=== PATIENT | male | born 1935 | race Caucasian/White ===

== ENCOUNTER 2021-10-12 10:52 | Inpatient (IN) | payer MEDICARE, SELFPAY ==
--- NOTE | ~2021-10-12 | XR_ITS ---
EXAMINATION: XR CHEST CLINICAL INFORMATION: Weakness. COMPARISON: None TECHNIQUE: Frontal view of the chest was obtained. FINDINGS: Prominent bowel loops are identified along the subdiaphragmatic region bilaterally with nonspecific bibasilar airspace disease. Curvilinear radiolucency seen at the right subdiaphragmatic region likely represent bowel loop however, possibility of free air is not excluded. There are no prior studies available for comparison. The cardiac mediastinal silhouette is within normal limit. XR/XR chest 1V IMPRESSION: Prominent bowel loops seen at subdiaphragmatic region of both upper abdomen. Curvilinear radiolucency the right subdiaphragmatic region likely represent lung parenchyma and less likely to be free air. Follow-up radiographs of the abdomen may be considered for further clarification, if clinically appropriate. Evaluation is technically limited. Bibasilar airspace disease.
--- NOTE | ~2021-10-12 | XR_ITS ---
EXAMINATION: XR CHEST CLINICAL INFORMATION: Left lower lobe atelectasis. COMPARISON: 10/20/2021 at 6:29 AM chest radiograph, chest CT dated 10/19/2021. TECHNIQUE: Single portable AP view of the chest. FINDINGS: Support devices: Endotracheal tube positioned approximately 6 cm proximal to leatha. Enteric tube with tip overlying the left upper quadrant and gastric fundus. Right internal jugular catheter with tip terminating in the distal superior vena cava. Persistent mild opacification at the left lung base with blunting of the left costophrenic angle. The right lung is clear. The heart and mediastinal structures are unremarkable. XR/XR chest 1V IMPRESSION: 1. Persistent small left pleural effusion and superjacent atelectasis correlating with previous CT findings and demonstrating no significant radiographic change.
--- NOTE | ~2021-10-12 | CT_ITS ---
EXAMINATION: CT CHEST WITHOUT CONTRAST CLINICAL INFORMATION: Question worsening infiltrates COMPARISON: Chest x-ray 10/18/2021. Chest CT 10/15/2021 TECHNIQUE: Multidetector volumetric CT imaging of the chest was done. Axial MIP volume rendering provided. Sagittal and coronal reformatted images were obtained. This CT examination was performed using dose optimization techniques as appropriate, variously including the following: *Automated exposure control *Adjustment of mA and/or kV according to patient size (this includes techniques or standardized protocols for targeted exams where dose is matched to indication/reason for exam; i.e. 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 The tip of the endotracheal tube is 3 cm above the leatha. An enteric tube descends the esophagus with tip in the proximal stomach. 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 LUNGS: There is consolidation of the posterior aspect of the right lower lobe with air bronchograms which is slightly worsened compared to the CT 10/15/2021. There is near complete atelectasis/collapse of the left lower lobe with consolidation; a few air bronchograms are seen anteriorly. There is prompt cutoff of the left lower lobe airway before the major segmental branches. MEDIASTINUM: No hilar or mediastinal lymphadenopathy. Mild cardiomegaly. Coronary artery calcifications. Aortic arch calcifications. No pericardial effusion. PLEURA: Small bilateral pleural effusions are present new/increased from the prior CT. AXILLA: No axillary or internal mammary lymphadenopathy. UPPER ABDOMEN: No adrenal mass. Partially imaged left upper pole renal cysts incompletely evaluated. OSSEOUS STRUCTURES: Multilevel degenerative changes of the thoracolumbar spine. No acute or suspicious osseous abnormality. CT/CT chest wo con IMPRESSION: Worsened bilateral lower lobe consolidation. There is near complete atelectasis/collapse of the left lower lobe with abrupt cut off of the left lower lobe bronchus. A component of mucous plugging or aspiration may be present. Concomitant pneumonia cannot be excluded. New small bilateral pleural effusions are present. Fleischner guidelines were followed.
--- NOTE | ~2021-10-12 | CT_ITS ---
EXAMINATION: CT CHEST WITHOUT CONTRAST CLINICAL INFORMATION: Respiratory failure. COMPARISON: Most recent chest radiograph done earlier the same day. TECHNIQUE: Multidetector volumetric CT imaging of the chest was done. Axial MIP volume rendering provided. Sagittal and coronal reformatted images were obtained. This CT examination was performed using dose optimization techniques as appropriate, variously including the following: *Automated exposure control *Adjustment of mA and/or kV according to patient size (this includes techniques or standardized protocols for targeted exams where dose is matched to indication/reason for exam; i.e. extremities or head) *Use of iterative reconstruction technique DLP: 257 mGy-cm FINDINGS: VACUUM SYSTEM TESTER: Grossly unremarkable. LUNGS: Posterior bibasilar airspace opacities with air bronchograms, left greater than right, consistent with multifocal pneumonia. There are small patchy areas of airspace opacities extending more superiorly within the right lower lobe. 0.4 cm subpleural nodule along the left major fissure (axial image 160/691). There are a few scattered additional 0.2 cm pulmonary nodules. No large pulmonary mass. The central airways are patent. Endotracheal tube with its tip approximately 3.3 cm proximal to the leatha. MEDIASTINUM: Borderline cardiomegaly. Coronary artery atherosclerotic calcifications. No thoracic aortic dilatation. Prominent atherosclerotic calcifications. Partially visualized enterogastric tube extending into the gastric lumen. No significant superior mediastinal or hilar lymphadenopathy. Unremarkable thyroid. PLEURA: There is no pleural effusion. No pleural mass or thickening. AXILLA: No lymphadenopathy. UPPER ABDOMEN: Mild bilateral perinephric stranding which is nonspecific. OSSEOUS STRUCTURES: Unremarkable. CT/CT chest wo con IMPRESSION: 1. Bilateral lower lobe consolidations with air bronchograms, consistent with multifocal pneumonia. Findings can be seen in the setting of aspiration. 2. Small pulmonary nodules measuring up to 0.4 cm. According to the UPDATED 2017 Fleischner Society recommendations, the advised follow up imaging for solid nodules < 6 mm is: LOW RISK PATIENT: No routine follow up. HIGH RISK PATIENT: Optional CT at 12 months. 3. Borderline cardiomegaly. Fleischner guidelines were followed.
--- NOTE | ~2021-10-12 | CT_ITS ---
EXAMINATION: CT HEAD WITHOUT CONTRAST CLINICAL INFORMATION: Altered mental status. Recent fall. COMPARISON: None TECHNIQUE: Contiguous axial imaging was performed from the skull base to vertex without intravenous administration of contrast. This CT examination was performed using dose optimization techniques as appropriate, variously including the following: *Automated exposure control *Adjustment of mA and/or kV according to patient size (this includes techniques or standardized protocols for targeted exams where dose is matched to indication/reason for exam; i.e. extremities or head) *Use of iterative reconstruction technique DLP: 796.7 mGy-cm FINDINGS: There is no evidence of acute intracranial hemorrhage or territorial infarction. No abnormal mass effect or midline shift is seen. Sanders to white matter differentiation is well preserved. No extra-axial fluid collections are identified. The ventricles are normal in size. There is no abnormal attenuation within the brain parenchyma. The osseous structures and soft tissues are normal. The mastoid air cells and visualized portions of the paranasal sinuses are well aerated. CT/CT head/brain wo con IMPRESSION: No acute intracranial pathology.
--- NOTE | ~2021-10-12 | XR_ITS ---
EXAMINATION: XR CHEST CLINICAL INFORMATION: Check endotracheal tube. Hypoxia. COMPARISON: Previous chest x-ray and chest CT from yesterday TECHNIQUE: Frontal view of the chest was obtained. FINDINGS: The cardiac and mediastinal contours are stable. There is an endotracheal tube with tip 5.5 cm above the leatha. There is a nasogastric tube with tip projecting over the stomach. There is a right jugular line tip projecting over the SVC. There is airspace disease seen at both lung bases similar to yesterday's exam. There is no pleural effusion or pneumothorax. No acute bone abnormality. XR/XR chest 1V IMPRESSION: Satisfactory position of support line and tubes. No change in bibasilar pneumonia.
--- NOTE | ~2021-10-12 | XR_ITS ---
EXAMINATION: XR CHEST CLINICAL INFORMATION: Aspiration pneumonia. Intubated. COMPARISON: 10/16/2021 TECHNIQUE: Frontal view of the chest was obtained. FINDINGS: The endotracheal tube terminates at the level of the clavicles, approximately 7 cm above the leatha. Enteric tube extends into the stomach. Right internal jugular central venous catheter remains in place. Cardiac leads overlie the chest. The lungs are well expanded. Patchy bibasilar opacities are increased from prior. No significant pleural effusion. No pneumothorax. The cardiomediastinal silhouette is normal in size with a calcified aorta. XR/XR chest 1V IMPRESSION: Endotracheal tube terminating 7 cm above the leatha, at the level of the clavicles. Consider advancement. Increased patchy bibasilar opacities. This could be aspiration/pneumonia.
--- NOTE | ~2021-10-12 | XR_ITS ---
EXAMINATION: XR CHEST CLINICAL INFORMATION: Endotracheal tube/OG tube placement COMPARISON: 10/12/2021 TECHNIQUE: Frontal view of the chest was obtained. FINDINGS: Endotracheal tube terminates at the level of the clavicles. This is approximately 8.5 cm above the leatha. There is no enteric tube visualized. Cardiac leads overlie the chest. The lungs are well expanded. No consolidation, edema, or effusion. No pneumothorax. The cardiomediastinal silhouette is normal in size, with a calcified aorta. XR/XR chest 1V IMPRESSION: Endotracheal tube terminates 8.5 cm above the leatha. Recommend advancement. There is no enteric tube visualized. This critical result was discussed with Lurdes Rogers PA-C, by telephone at 10/15/2021 5:14 AM and it was ascertained that the content and urgency of the report was understood at the time of direct communication.
--- NOTE | ~2021-10-12 | XR_ITS ---
XR/XR chest 1V IMPRESSION: Endotracheal tube 4 cm above the leatha. Enteric tube terminates in the stomach. Right internal jugular central venous catheter terminates near the cavoatrial junction. No pneumothorax. Likely tiny pleural effusions with bibasilar atelectasis. EXAMINATION: XR CHEST CLINICAL INFORMATION: Triple-lumen catheter and OG tube placement COMPARISON: 10/15/2021 TECHNIQUE: Frontal view of the chest was obtained. FINDINGS: Endotracheal tube terminates 4 cm above the leatha. Enteric tube extends into the stomach. Right internal jugular central venous catheter terminates near the cavoatrial junction. Cardiac leads overlie the chest. The lungs are well expanded. Streaky bibasilar opacities favor atelectasis. Likely tiny pleural effusions bilaterally. No edema. No pneumothorax. The cardiomediastinal silhouette is unchanged, with a calcified aorta.
--- NOTE | ~2021-10-12 | CT_ITS ---
EXAMINATION: CT HEAD WITHOUT CONTRAST CLINICAL INFORMATION: Unresponsive COMPARISON: October 12, 2021 TECHNIQUE: Contiguous axial imaging was performed from the skull base to vertex without intravenous administration of contrast. This CT examination was performed using dose optimization techniques as appropriate, variously including the following: *Automated exposure control *Adjustment of mA and/or kV according to patient size (this includes techniques or standardized protocols for targeted exams where dose is matched to indication/reason for exam; i.e. extremities or head) *Use of iterative reconstruction technique DLP: 832 mGy-cm FINDINGS: There is no evidence of acute intracranial hemorrhage or territorial infarction. No abnormal mass effect or midline shift is seen. Sanders to white matter differentiation is well preserved. No extra-axial fluid collections are identified. There is some prominence of the ventricular system. There is mild periventricular white matter low density seen consistent with some degree of microangiopathy. The osseous structures and soft tissues are normal. There is opacification of a few right mastoid air cells as well as some mucosal thickening seen within the ethmoid and right maxillary sinus. CT/CT head/brain wo con IMPRESSION: No significant acute intracranial pathology.
--- NOTE | ~2021-10-12 | XR_ITS ---
EXAMINATION: XR CHEST CLINICAL INFORMATION: Left lower lobe atelectasis COMPARISON: 10/18/2021 TECHNIQUE: Frontal view of the chest was obtained. FINDINGS: Endotracheal tube terminates approximately 6.5 cm above the leatha. Enteric tube extends into the stomach. Right internal jugular central venous catheter terminates near the cavoatrial junction. Cardiac leads overlie the chest. The lungs are well expanded. Increased retrocardiac opacity. Similar right basilar opacity. No pneumothorax. The cardiomediastinal silhouette is unchanged, with a calcified aorta. XR/XR chest 1V IMPRESSION: Endotracheal tube terminating 6.5 cm above the leatha. Worsening left basilar opacity could be atelectasis or pneumonia. Similar right basilar opacity.
[2021-10-12 11:12] VITALS: BP 113/56; PULSE 70; RESP 14; TEMP 36.6; O2SAT 91
[2021-10-12 11:14] VITALS: BP 128/66; PULSE 72; O2SAT 98; BMI 21.5
--- NOTE | 2021-10-12 11:15 | ED_ITS ---
HPI - Altered Mental Status General Chief Complaint: Altered Mental Status Stated Complaint: Difficulty breathing Time Seen by Provider: 10/12/21 11:00 Source: patient and EMS Mode of arrival: EMS Limitations: no limitations History of Present Illness HPI narrative: 85-year-old male who was brought to emergency department by ambulance for evaluation of shortness of breath and altered mental status. According to the paramedics, they were called to [facility] for an unresponsive to patient who was short of breath. When they arrived, the patient was on 2 L of oxygen via nasal cannula. He was awake and alert and was answering questions. The paramedics to come off oxygen his O2 saturation dropped to 90% therefore he is placed back on 2 L of oxygen via nasal cannula. Patient was then transported without incident. Records from [facility] were obtained and reviewed. Patient was admitted from 10/09/2021 until 10/11/2021 for fall. Record states patient has been falling frequently approximately 6-7 times over the past year. The patient was found to be orthostatic and was treated with normal saline with improvement. CT scan of head and neck were negative at that time. Initially his blood pressure was 77/51 improved with IV fluids. Patient's blood pressure medications were decreased. The patient was discharged to [facility] for rehab secondary to his weakness. In reviewing the records from [facility], the patient is not currently taking antibiotics. Related Data Home Medications Medication Instructions Recorded Confirmed acetaminophen 325 mg tablet 650 mg PO Q6H PRN Pain 10/12/21 10/12/21 amiodarone 100 mg tablet 100 mg PO DAILY 10/12/21 10/12/21 bisacodyl 10 mg rectal suppository 10 mg AR DAILY PRN Constipation 10/12/21 10/12/21 fluticasone propionate 50 1 spray intranasal DAILY PRN 10/12/21 10/12/21 mcg/actuation nasal Allergic Symptoms spray,suspension furosemide 20 mg tablet 60 mg PO DAILY 10/12/21 10/12/21 latanoprost 0.005 % eye drops 1 drp ophthalmic-Left 10/12/21 10/12/21 TID@0800,1400,2000 magnesium hydroxide 400 mg/5 mL 30 ml PO DAILY PRN Constipation 10/12/21 10/12/21 oral suspension (Milk of Magnesia) sacubitril 24 mg-valsartan 26 mg 1 tab PO DAILY 10/12/21 10/12/21 tablet (Entresto) sodium phosphates 19 gram-7 118 ml AR DAILY PRN Constipation 10/12/21 10/12/21 gram/118 mL enema (Fleet Enema) Allergies Allergy/AdvReac Type Severity Reaction Status Date / Time No Known Allergies Allergy Verified 10/12/21 11:14 Review of Systems Review of Systems: Yes all other systems are reviewed and are negative REPLACED BY [facility] Past Medical History REPLACED BY [facility] Narrative: Past medical history: Dilated cardiomyopathy, systolic congestive heart fa ilure, TIA secondary to carotid stenosis status post carotid endarterectomy, recurrent UTIs, hypertension, frequent falls left arm weakness with 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 Social history: States he lives in [facility] with his . He denies tobacco alcohol and drug use. Medical History (Updated 10/12/21 @ 17:37 by Pablo Velez MD) Dilated cardiomyopathy History of TIA (transient ischemic attack) HTN (hypertension) Orthostatic hypotension Systolic CHF Family History Family History (Updated 10/12/21 @ 17:37 by Pablo Velez MD) Other Guillain Rainey? syndrome Social History Social History Alcohol intake: former Patient Tobacco Use Status: Former Tobacco user Use of substances other than those prescribed or required for medical reasons: No Advance Directives: Yes Advance Directives Information Provided: Yes Advance Directives on File: No Physical Exam ED Vital Signs: Vital Signs - 24 hr 10/12/21 11:12 10/12/21 14:01 10/12/21 16:04 Temperature 97.9 F 97.7 F 97.7 F Pulse Rate 70 79 80 Respiratory Rate 14 18 15 Blood Pressure 113/56 L 120/63 135/66 Pulse Oximetry 91 L 91 L 98 Oxygen Delivery Method Room Air Nasal Cannula Nasal Cannula Oxygen Flow Rate 1 2 BMI result Body Mass Index 21.5 Const Other: Awake, alert, male patient, he does appear weak, he does answer questions appropriately, he is oriented to person, he is able to tell me that he was at [facility], he was able to tell me that he was recently hospitalized at [facility]. Orientation/consciousness: oriented to person and oriented to place [facility] Other: The patient has a healing wound to his mid parietal scalp which does not appear to be infected Head: Yes normal to inspection Ears: external ears normal General nose exam: Normal external nose present Face and sinus: Yes normal facial exam Mouth: Normal oral and palatal mucosa present Throat: Yes posterior oropharynx normal Eyes General: appearance normal, both eyes and all related structures Pupils: Equal, round and reactive pupils present Neck Neck: Yes normal visual inspection, Yes no lymphadenopathy, Yes trachea midline and Yes supple Chest Chest palpation & inspection: normal inspection of the chest and normal palpation of entire chest wall Resp Effort & Inspection: normal respiratory effort and able to speak in complete sentences Auscultation: clear to auscultation bilaterally Cardio Rate: regular rate Rhythm: regular rhythm Heart sounds: S1 normal heart sound present, S2 normal heart sound present and no murmurs GI Inspection: Yes normal to inspection Palpation (GI): Soft to palpation, nontender and no guarding Auscultation: normal bowel sounds General: Yes no CVA tenderness Back/Spine/Pelvis Back: no CVA tenderness Skin General skin exam: no rashes or lesions noted Neuro Other: The patient's left upper extremity is atrophied, he has a wrist drop and weakness with movement of the left arm compared to the right arm (patient states this is chronic x5 secondary to neuropathy) General: oriented to person and oriented to place Cranial nerves: Yes CN's II-XII intact bilaterally and Yes Equal, round and reactive pupils present Cognition (Neuro): normal cognition Extrem Other: Atrophy of the muscles left upper extremity Psych Appearance: grossly normal Speech and movement: Normal speech and movement present Affect: normal affect Attitude: cooperative Thought process: Normal thought process present Thought content: Normal thought content present Course Course Course Narrative: 85-year-old male who was brought to the emergency department from his custodial facility for evaluation of altered mental status and shortness of breath. The patient was recently hospitalized at [facility] for a fall secondary to orthostatic hypotension and after this a 2 day hospital stay, he was sent to [facility] for rehab. Paramedics report that the patient was weak appearing but her oriented, he was on 2 L oxygen and off oxygen his O2 saturation was 90% on room air. He was placed back on oxygen. This patient normally does not require oxygen at home. Vital signs revealed a low O2 saturation 91% on room air otherwise were unremarkable. Patient's exam is consistent with generalized weakness otherwise was unremarkable. I did order a CBC, CMP, troponin, lipase, lactate, blood cultures x2, urinalysis, EKG and chest x-ray. 1550: Laboratory evaluation: CMP revealed an elevated sodium 146, elevated CO2 35, elevated BUN and creatinine 36 and 1.64. Lactate was normal at 0.8. Troponin was elevated at 36. Lactate was normal at 0.8. COVID-19 influenza were negative. Urinalysis revealed 1+ protein, 1+ blood, positive nitrates, 3+ leukocyte esterase. Microscopic revealed 1-4 RBCs, too numerous to count WBCs and 4+ bacteria Radiology evaluation: Chest x-ray did not reveal any clear evidence for pneumoni, CT head unremarkable EKG revealed a sinus rhythm first-degree block, right bundle-branch block, no ST segment elevation depression. 1644: Patient's presentation is consistent urinary tract infection causing his lethargy. Patient's troponin was elevated and repeat the troponin at this time. 0639: WBC was normal 10, 500. COVID-19 influenza were negative. I did discuss patient's presentation with the covering hospitalist Dr. Velez and the patient will be admitted for further management. MDM - Altered Mental Status Lab Data Attestation: I reviewed the patient's lab results. Result diagrams: 10/12/21 17:18 10/12/21 12:35 Labs: Lab Results 10/12/21 10/12/21 10/12/21 Range/Units 12:35 12:35 12:35 Sodium 146 H (135-145) mmol/L Potassium 4.1 (3.3-5.1) mmol/L Chloride 101 (96-108) mmol/L Carbon Dioxide 35 H (22-29) mmol/L Anion Gap 14 (12-20) BUN 36 H (9-16) mg/dL Creatinine 1.64 H (0.5-1.4) mg/dL Estim Creat Clear Calc 33.5 Estimated GFR 40 Random Glucose 107 (60-115) mg/dL Lactic Acid 0.8 (0.5-2.0) mmol/L Calcium 9.8 (8.4-10.2) mg/dL Total Bilirubin 0.8 (0.0-1.0) mg/dL AST 30 (5-37) U/L ALT 29 (0-40) U/L Alkaline Phosphatase 115 (39-117) U/L Troponin I High Sens 36.0 H (<3.5-35.0) ng/L B-Natriuretic Peptide 410 H (<100) pg/mL Total Protein 7.6 (6.5-8.0) g/dL Albumin 4.2 (3.5-5.0) g/dL Lipase 11 (8-78) U/L Urine Color Urine Appearance Urine pH (5.0-8.0) Ur Specific [place] (1.005-1.025) Urine Protein (NEG-TRACE) MG/DL Urine Glucose (UA) (NEG) MG/DL Urine Ketones (NEG) MG/DL Urine Blood (NEG) Urine Nitrite (NEG) Ur Leukocyte Esterase (NEG) Urine RBC (0) /HPF Urine WBC (0-4) /HPF Ur Squamous Epith Cells /LPF Urine Bacteria /LPF COVID-19 (YARELI) (Negative) COVID-19 Clin Com Influenza Type A (CARTER) (Negative) Influenza Type B (CARTER) (Negative) Influenza A & B Note 10/12/21 10/12/21 10/12/21 Range/Units 12:35 13:05 13:05 Sodium (135-145) mmol/L Potassium (3.3-5.1) mmol/L Chloride (96-108) mmol/L Carbon Dioxide (22-29) mmol/L Anion Gap (12-20) BUN (9-16) mg/dL Creatinine (0.5-1.4) mg/dL Estim Creat Clear Calc Estimated GFR Random Glucose (60-115) mg/dL Lactic Acid (0.5-2.0) mmol/L Calcium (8.4-10.2) mg/dL Total Bilirubin (0.0-1.0) mg/dL AST (5-37) U/L ALT (0-40) U/L Alkaline Phosphatase (39-117) U/L Troponin I High Sens Cancelled (<3.5-35.0) ng/L B-Natriuretic Peptide (<100) pg/mL Total Protein (6.5-8.0) g/dL Albumin (3.5-5.0) g/dL Lipase (8-78) U/L Urine Color Urine Appearance Urine pH (5.0-8.0) Ur Specific [place] (1.005-1.025) Urine Protein (NEG-TRACE) MG/DL Urine Glucose (UA) (NEG) MG/DL Urine Ketones (NEG) MG/DL Urine Blood (NEG) Urine Nitrite (NEG) Ur Leukocyte Esterase (NEG) Urine RBC (0) /HPF Urine WBC (0-4) /HPF Ur Squamous Epith Cells /LPF Urine Bacteria /LPF COVID-19 (YARELI) Negative (Negative) COVID-19 Clin Com See Note Influenza Type A (CARTER) Negative (Negative) Influenza Type B (CARTER) Negative (Negative) Influenza A & B Note See Note 10/12/21 10/12/21 Range/Units 14:17 16:58 Sodium (135-145) mmol/L Potassium (3.3-5.1) mmol/L Chloride (96-108) mmol/L Carbon Dioxide (22-29) mmol/L Anion Gap (12-20) BUN (9-16) mg/dL Creatinine (0.5-1.4) mg/dL Estim Creat Clear Calc Estimated GFR Random Glucose (60-115) mg/dL Lactic Acid (0.5-2.0) mmol/L Calcium (8.4-10.2) mg/dL Total Bilirubin (0.0-1.0) mg/dL AST (5-37) U/L ALT (0-40) U/L Alkaline Phosphatase (39-117) U/L Troponin I High Sens 29.7 (<3.5-35.0) ng/L B-Natriuretic Peptide (<100) pg/mL Total Protein (6.5-8.0) g/dL Albumin (3.5-5.0) g/dL Lipase (8-78) U/L Urine Color YELLOW Urine Appearance CLOUDY Urine pH 5.5 (5.0-8.0) Ur Specific [place] 1.020 (1.005-1.025) Urine Protein 1+ H (NEG-TRACE) MG/DL Urine Glucose (UA) NEG (NEG) MG/DL Urine Ketones NEG (NEG) MG/DL Urine Blood 1+ H (NEG) Urine Nitrite POS H (NEG) Ur Leukocyte Esterase 3+ H (NEG) Urine RBC 1-4 (0) /HPF Urine WBC TNTC H (0-4) /HPF Ur Squamous Epith Cells NONE /LPF Urine Bacteria 4+ /LPF COVID-19 (YARELI) (Negative) COVID-19 Clin Com Influenza Type A (CARTER) (Negative) Influenza Type B (CARTER) (Negative) Influenza A & B Note ECG Data ECG #1: Attestation: I personally reviewed and interpreted this ECG as follows: Interpretation: 1152: Sinus rhythm the rate of 69 and with a first-degree block AR interval 220 is 6 milliseconds, prolonged QTC of 486 milliseconds, right bundle-branch block, no ST segment elevation, no ST segment depression, no PACs, no PVCs Discharge Plan Discharge Clinical Impression: UTI (urinary tract infection), Altered mental status Patient Disposition: Admitted As Inpatient
--- NOTE | 2021-10-12 11:36 | PC.NURSE ---
oxygen went down to 75% on room air. placed on 4 liters nasal cannula and oxygen up to 92%. will continue to monitor
--- NOTE | 2021-10-12 11:43 | ECG_ITS ---
Test Reason : WEAKNESS Blood Pressure : / mmHG Vent. Rate : 069 BPM Atrial Rate : 069 BPM P-R Int : 226 ms QRS Dur : 146 ms QT Int : 454 ms P-R-T Axes : 093 -64 057 degrees QTc Int : 486 ms Sinus rhythm with 1st degree A-V block Right bundle branch block Left anterior fascicular block Bifascicular block Abnormal ECG No previous ECGs available Referred By: Benji Ward Electronically Signed By:HARIKA EARL MD
[2021-10-12 12:56] LABS: Lactic Acid 0.8 mmol/L (0.5-2.0)
[2021-10-12 13:00] LABS: Alanine Aminotransferase 29 U/L (0-40); Albumin Level 4.2 g/dL (3.5-5.0); Alkaline Phosphatase 115 U/L (39-117); Anion Gap 14 (12-20); Aspartate Amino Transferase 30 U/L (5-37); Bilirubin Total 0.8 mg/dL (0.0-1.0); Blood Urea Nitrogen 36 mg/dL (9-16); Calcium 9.8 mg/dL (8.4-10.2); Carbon Dioxide 35 mmol/L (22-29); Chloride 101 mmol/L (96-108); Creatinine Clr Calc Pharmacy 33.5; Estimated Glomerular Filt Rate 40; Glucose Random 107 mg/dL (60-115); Lipase 11 U/L (8-78); Potassium 4.1 mmol/L (3.3-5.1); Sodium 146 mmol/L (135-145); Total Protein 7.6 g/dL (6.5-8.0)
[2021-10-12 13:06] LABS: B Type Natriuretic Peptide 410 pg/mL (<100)
[2021-10-12 13:31] LABS: COVID-19 Test Negative (Negative); IDNOW Serial# 16C4AD1C
[2021-10-12 13:47] LABS: Influenza A Negative (Negative); Influenza B2 Negative (Negative)
[2021-10-12 14:01] VITALS: BP 120/63; PULSE 79; RESP 18; TEMP 36.5; O2SAT 91
[2021-10-12 14:37] LABS: Appearance Urine CLOUDY; Color Urine YELLOW; Glucose Urine UA NEG (NEG); Leukocyte Esterase Urine 3+ (NEG); Nitrite Urine POS (NEG); PH 5.5 (5.0-8.0); UACC Culture Trigger YES; Urine Blood 1+ (NEG); Urine Ketones NEG (NEG); Urine Protein 1+ MG/DL (NEG-TRACE)
[2021-10-12 14:55] LABS: Bacteria Urine 4+ /LPF; WBC Urine TNTC /HPF (0-4)
--- NOTE | 2021-10-12 14:58 | PC.NURSE ---
pt straight cathed for 550mL of urine and urine sample collected. Pt states he has to straight cath himself at home every 4 hours. Pt resting comfortbly with family at bedside. Call martinez in reach and will continue to monitor
[2021-10-12 16:04] VITALS: BP 135/66; PULSE 80; RESP 15; TEMP 36.5; O2SAT 98
[2021-10-12] MEDS: cefTRIAXone sodium 1 GM in 0.9 % Sodium Chloride 50 ML IV (16:12)
--- NOTE | 2021-10-12 17:06 | PM.IMHP ---
History of Present Illness Date of Service: 10/12/21 Chief Complaint: Confusion and weakness 85 year old male with history of dilated cardiomyopathy EF around 50% (asset protection specialist is Dr. Calderon), HTN, history of TIA due to carotid stenosis and is s/p CEA, chronic urinary retention and does self-cath 4 times a day, complicated by recurrent UTI, frequent falls, left arm neuropathy and has no use of it (he says not due to stroke). Patient was admitted to the [facility] on 10/08/21 following a fall and was managed for orthostatic hypotension cardiac meds including Entresto and Lasix dose reduced and was he sent to rehab at [facility]. He was sent here today due to confusion and shortness of breath, he seems lethargic yet coherent to me and reports that his shortness of breath is at baseline, there is no hypoxia. UA is consitent with UTI, sodium is 146, CXR shows some bibasilar airspace disease. WBC is 10 Review of Systems Review of Systems: Gen: no fever Resp: no sob, no cough CV: no chest, no HA[place]NE, no leg edema GI: No n/v, no abd pain Neuro: No confusion [facility] Medical History (Updated 10/12/21 @ 17:37 by Pablo Velez MD) Dilated cardiomyopathy History of TIA (transient ischemic attack) HTN (hypertension) Orthostatic hypotension Systolic CHF Family History (Updated 10/12/21 @ 17:37 by Pablo Velez MD) Other Guillain Rainey? syndrome Pertinent family history: mother in 90s of natural causes Social History Alcohol intake: former Patient Tobacco Use Status: Former Tobacco user Use of substances other than those prescribed or required for medical reasons: No Advance Directives: Yes Advance Directives Information Provided: Yes Advance Directives on File: No Meds Allergies Allergy/AdvReac Type Severity Reaction Status Date / Time No Known Allergies Allergy Verified 10/12/21 11:14 Active Medications: Current Medications Pharmacy Consult (Consult Rx Perform Med Rec) 1 each MISCELLANE ONCE PRN PRN Reason: Consult order Home Medications Medication Instructions Recorded Confirmed Last Taken Type acetaminophen 325 mg tablet 650 mg PO Q6H PRN Pain 10/12/21 10/12/21 Unknown History amiodarone 100 mg tablet 100 mg PO DAILY 10/12/21 10/12/21 10/11/21 History bisacodyl 10 mg rectal suppository 10 mg DE DAILY PRN Constipation 10/12/21 10/12/21 Unknown History fluticasone propionate 50 1 spray intranasal DAILY PRN 10/12/21 10/12/21 Unknown History mcg/actuation nasal Allergic Symptoms spray,suspension furosemide 20 mg tablet 60 mg PO DAILY 10/12/21 10/12/21 Unknown History latanoprost 0.005 % eye drops 1 drp ophthalmic-Left 10/12/21 10/12/21 Unknown History TID@0800,1400,2000 magnesium hydroxide 400 mg/5 mL 30 ml PO DAILY PRN Constipation 10/12/21 10/12/21 Unknown History oral suspension (Milk of Magnesia) sacubitril 24 mg-valsartan 26 mg 1 tab PO DAILY 10/12/21 10/12/21 Unknown History tablet (Entresto) sodium phosphates 19 gram-7 118 ml DE DAILY PRN Constipation 10/12/21 10/12/21 Unknown History gram/118 mL enema (Fleet Enema) Physical Exam Vital Signs and Narrative: Vital Signs: Last Vital Signs Temp 97.7 F 10/12/21 16:04 Pulse 80 10/12/21 16:04 Resp 15 10/12/21 16:04 BP 135/66 10/12/21 16:04 Pulse Ox 98 10/12/21 16:04 O2 Del Method 10/12/21 16:04 O2 Flow Rate 2 10/12/21 16:04 BMI result Body Mass Index 21.5 Const: Other: Constitutional: Alert, in no distress, overweight. Mental Status: Oriented to person, place and time. Eyes: Pupils are equal, round and reactive to light. Ear, Nose and Throat: Oropharynx clear, mucous membranes moist. Ears and nose without eformities. Trachea midline. Respiratory: Clear to auscultation. No wheezing, rales or rhonchi. Cardiovascular: S1 S2 regular. No murmurs, rubs or gallops. Gastrointestinal: Abdomen soft, non-tender, non-distended. Normal bowel sounds.? Neurologic: Cranial nerves II-XII grossly intact. No focal neurological deficits. Moves all extremities spontaneously.? Skin: No rashes or lesions.? Musculoskeletal: No cyanosis or clubbing. Psychiatric: Normal mood and affect? Results Labs CBC and Chem 7: 10/12/21 17:18 10/12/21 12:35 Labs: Laboratory Results - last 24 hr 10/12/21 10/12/21 10/12/21 12:35 12:35 12:35 Anion Gap 14 Estim Creat Clear Calc 33.5 Estimated GFR 40 Random Glucose 107 Lactic Acid 0.8 Calcium 9.8 Total Bilirubin 0.8 AST 30 ALT 29 Alkaline Phosphatase 115 Troponin I High Sens 36.0 H B-Natriuretic Peptide 410 H Total Protein 7.6 Albumin 4.2 Lipase 11 Urine Color Urine Appearance Urine pH Ur Specific [place] Urine Protein Urine Glucose (UA) Urine Ketones Urine Blood Urine Nitrite Ur Leukocyte Esterase Urine RBC Urine WBC Ur Squamous Epith Cells Urine Bacteria COVID-19 (YARELI) COVID-19 Clin Com Influenza Type A (CARTER) Influenza Type B (CARTER) Influenza A & B Note 10/12/21 10/12/21 10/12/21 12:35 13:05 13:05 Anion Gap Estim Creat Clear Calc Estimated GFR Random Glucose Lactic Acid Calcium Total Bilirubin AST ALT Alkaline Phosphatase Troponin I High Sens Cancelled B-Natriuretic Peptide Total Protein Albumin Lipase Urine Color Urine Appearance Urine pH Ur Specific [place] Urine Protein Urine Glucose (UA) Urine Ketones Urine Blood Urine Nitrite Ur Leukocyte Esterase Urine RBC Urine WBC Ur Squamous Epith Cells Urine Bacteria COVID-19 (YARELI) Negative COVID-19 Clin Com See Note Influenza Type A (CARTER) Negative Influenza Type B (CARTER) Negative Influenza A & B Note See Note 10/12/21 14:17 Anion Gap Estim Creat Clear Calc Estimated GFR Random Glucose Lactic Acid Calcium Total Bilirubin AST ALT Alkaline Phosphatase Troponin I High Sens B-Natriuretic Peptide Total Protein Albumin Lipase Urine Color YELLOW Urine Appearance CLOUDY Urine pH 5.5 Ur Specific [place] 1.020 Urine Protein 1+ H Urine Glucose (UA) NEG Urine Ketones NEG Urine Blood 1+ H Urine Nitrite POS H Ur Leukocyte Esterase 3+ H Urine RBC 1-4 Urine WBC TNTC H Ur Squamous Epith Cells NONE Urine Bacteria 4+ COVID-19 (YARELI) COVID-19 Clin Com Influenza Type A (CARTER) Influenza Type B (CARTER) Influenza A & B Note Imaging Radiologist's Impressions: Impressions Chest X-Ray 10/12/21 12:42 IMPRESSION: Prominent bowel loops seen at subdiaphragmatic region of both upper abdomen. Curvilinear radiolucency the right subdiaphragmatic region likely represent lung parenchyma and less likely to be free air. Follow-up radiographs of the abdomen may be considered for further clarification, if clinically appropriate. Evaluation is technically limited. Bibasilar airspace disease. Head CT 10/12/21 15:03 IMPRESSION: No acute intracranial pathology. Assessment and Plan (1) UTI (urinary tract infection): Status: Acute (2) Toxic metabolic encephalopathy: Status: Acute (3) Hypernatremia: Status: Acute Plan 85/m with dilated cardiomyopathy, chronic urinary retention self cath at home, fequent falls, discharged from [facility] yesterday after admission for orthostatic hypotension, falls and meds were adjusted with lowering of entreso and Lasix..He comes here with confusion, weakness, sob and noted to have UTI, and probably pneumonia--covid is negative. 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
[2021-10-12 17:22] LABS: MANUAL DIFF FLAG NO
[2021-10-12 17:23] LABS: Basophils Percent Auto 0.2 % (0-2); Eosinophils Absolute Auto 0.2 X10*3/uL (0.0-0.4); Eosinophils Percent Auto 1.7 % (0-4); Hematocrit 38.3 % (42.0-52.0); Hemoglobin 11.9 g/dl (14.0-18.0); Imm Gran Abs Auto 0.06 X10*3/uL (0.00-0.03); Imm Gran Pct Auto 0.6 % (0.0-0.4); Lymphocytes Absolute Auto 0.5 X10*3/uL (1.2-4.9); Lymphocytes Percent Auto 4.5 % (20-40); Mean Corpuscular HGB Conc 31.1 g/dl (31.0-36.0); Mean Corpuscular Hemoglobin 31.3 pg (27.0-33.0); Mean Corpuscular Volume 100.8 fL (80.0-98.0); Mean Platelet Volume 9.6 fL (9.4-12.4); Monocytes Absolute Auto 1.1 X10*3/uL (0.1-1.2); Monocytes Percent Auto 10.1 % (2-11); Neutrophils Absolute Auto 8.7 x10*3/uL (2.0-8.3); Neutrophils Percent Auto 82.9 % (45-73); Platelet Count 289 X10*3/uL (160-400); Red Cell Distribution Width 13.2 % (11.0-16.0); White Blood Count 10.5 X10*3/uL (4.8-10.8)
[2021-10-12 17:23] LABS: Troponin-I High Sensitivity 29.7 ng/L (<3.5-35.0)
--- NOTE | 2021-10-12 18:05 | PHA.MEDREC ---
Pharmacy Consult ? Medication Reconciliation Pharmacy has completed the medication reconciliation. Pt has list from [facility]
--- NOTE | 2021-10-12 21:10 | PC.NURSE ---
First attempt to give report to [facility], RN to callback.
[2021-10-12] MEDS: Heparin Sodium,Porcine 5,000 UNIT/ML VIAL 5000 UNIT SUBCUT (21:19)
[2021-10-12 21:42] VITALS: BP 108/65; PULSE 96; RESP 19; TEMP 36.7; O2SAT 93
[2021-10-12 23:21] VITALS: BP 110/57; PULSE 89; RESP 18; TEMP 36.7; O2SAT 92
[2021-10-12] MEDS: 0.9 % Sodium Chloride Flush 3 ML SYRINGE IVFLUSH (23:38)
[2021-10-13 03:19] VITALS: BP 129/73; PULSE 78; RESP 18; TEMP 36.4; O2SAT 94
[2021-10-13] MEDS: Heparin Sodium,Porcine 5,000 UNIT/ML VIAL 5000 UNIT SUBCUT ×2 (05:39→18:02)
[2021-10-13 07:17] VITALS: BP 116/56; PULSE 94; RESP 18; TEMP 36.7; O2SAT 94
[2021-10-13] MEDS: Amiodarone HCL 200 MG TABLET 100 MG PO (09:59)
[2021-10-13] MEDS: Milk of Magnesia 30 ML ORAL.SUSP PO (10:00)
[2021-10-13] MEDS: Fluticasone Propionate Nasal 16 GM SPRAY 1 SPRAY NOSTRIL-B (10:00)
[2021-10-13] MEDS: 0.9 % Sodium Chloride Flush 3 ML SYRINGE IVFLUSH ×3 (10:07→21:35)
--- NOTE | 2021-10-13 11:24 | P.PNIM_ITS ---
Subjective Subjective Date of Service: 10/13/21 Physical Exam Vital Signs: Vital Signs: Last Vital Signs Temp 98.1 F 10/13/21 07:17 Pulse 94 10/13/21 07:17 Resp 18 10/13/21 07:17 BP 116/56 L 10/13/21 07:17 Pulse Ox 94 10/13/21 07:17 O2 Del Method 10/13/21 07:17 O2 Flow Rate 2 10/13/21 07:17 BMI result Body Mass Index 21.5 Objective Data Active Medications Amiodarone HCl (Amiodarone Hcl 200 Mg Tablet) 100 mg PO DAILY [facility] Last Admin: 10/13/21 09:59 Dose: 100 mg Documented By: PEDRO Bisacodyl (Bisacodyl 10 Mg Supp.Rect) 10 mg FL DAILY PRN PRN Reason: Constipation Fluticasone Propionate (Fluticasone Propionate Nasal 16 Gm [place]) 1 spray NOSTRIL-B DAILY PRN PRN Reason: Allergic Symptoms Last Admin: 10/13/21 10:00 Dose: 1 spray Documented By: PEDRO Heparin Sodium (Porcine) (Heparin Sodium,Porcine 5,000 Unit/Ml Vial) 5,000 unit SUBCUT Q12H [facility] Last Admin: 10/13/21 05:39 Dose: 5,000 unit Documented By: ALEXIS Latanoprost (Latanoprost 0.005 % Ophth Shruthi 2.5 Ml Drops) 1 drop EYE-LEFT TID@0800,1400,2000 [facility] Last Admin: 10/13/21 10:06 Dose: Not Given Documented By: PEDRO Non-Admin Reason: Patient Refused Magnesium Hydroxide (Milk Of Magnesia 30 Ml Oral.Susp) 30 ml PO DAILY PRN PRN Reason: Constipation Last Admin: 10/13/21 10:00 Dose: 30 ml Documented By: PEDRO Pharmacy Consult (Consult Rx Perform Med Rec) 1 each MISCELLANE ONCE PRN PRN Reason: Consult order Sodium Biphosphate/Sodium Phosphate (Sodium Phosphate,[place]-Dibasic 133 Ml Enema) 118 ml FL DAILY PRN PRN Reason: Constipation Sodium Chloride (0.9 % Sodium Chloride Flush 3 Ml Syringe) 3 ml IVFLUSH QSHIFT [facility] Last Admin: 10/13/21 10:07 Dose: 3 ml Documented By: PEDRO Labs CBC & Chem 7: 10/12/21 17:18 10/12/21 12:35 Labs: Laboratory Results - last 24 hr 10/12/21 10/12/21 10/12/21 12:35 12:35 12:35 MCV MCH MCHC RDW Plt Count MPV Immature Gran % (Auto) Neut % (Auto) Lymph % (Auto) [place] % (Auto) Eos % (Auto) Baso % (Auto) Lymph # (Auto) [place] # (Auto) Eos # (Auto) Baso # (Auto) Abs Immat Gran (auto) Absolute Neuts (auto) Absolute Nucleated RBC Nucleated RBC % (auto) Anion Gap 14 Estim Creat Clear Calc 33.5 Estimated GFR 40 Random Glucose 107 Lactic Acid 0.8 Calcium 9.8 Total Bilirubin 0.8 AST 30 ALT 29 Alkaline Phosphatase 115 Troponin I High Sens 36.0 H B-Natriuretic Peptide 410 H Total Protein 7.6 Albumin 4.2 Lipase 11 Urine Color Urine Appearance Urine pH Ur Specific [place] Urine Protein Urine Glucose (UA) Urine Ketones Urine Blood Urine Nitrite Ur Leukocyte Esterase Urine RBC Urine WBC Ur Squamous Epith Cells Urine Bacteria COVID-19 (YARELI) COVID-19 Clin Com Influenza Type A (CARTER) Influenza Type B (CARTER) Influenza A & B Note 10/12/21 10/12/21 10/12/21 12:35 13:05 13:05 MCV MCH MCHC RDW Plt Count MPV Immature Gran % (Auto) Neut % (Auto) Lymph % (Auto) [place] % (Auto) Eos % (Auto) Baso % (Auto) Lymph # (Auto) [place] # (Auto) Eos # (Auto) Baso # (Auto) Abs Immat Gran (auto) Absolute Neuts (auto) Absolute Nucleated RBC Nucleated RBC % (auto) Anion Gap Estim Creat Clear Calc Estimated GFR Random Glucose Lactic Acid Calcium Total Bilirubin AST ALT Alkaline Phosphatase Troponin I High Sens Cancelled B-Natriuretic Peptide Total Protein Albumin Lipase Urine Color Urine Appearance Urine pH Ur Specific [place] Urine Protein Urine Glucose (UA) Urine Ketones Urine Blood Urine Nitrite Ur Leukocyte Esterase Urine RBC Urine WBC Ur Squamous Epith Cells Urine Bacteria COVID-19 (YARELI) Negative COVID-19 Clin Com See Note Influenza Type A (CARTER) Negative Influenza Type B (CARTER) Negative Influenza A & B Note See Note 10/12/21 10/12/21 10/12/21 14:17 16:58 17:18 MCV 100.8 H MCH 31.3 MCHC 31.1 RDW 13.2 Plt Count 289 MPV 9.6 Immature Gran % (Auto) 0.6 H Neut % (Auto) 82.9 H Lymph % (Auto) 4.5 L [place] % (Auto) 10.1 Eos % (Auto) 1.7 Baso % (Auto) 0.2 Lymph # (Auto) 0.5 L [place] # (Auto) 1.1 Eos # (Auto) 0.2 Baso # (Auto) 0.0 Abs Immat Gran (auto) 0.06 H Absolute Neuts (auto) 8.7 H Absolute Nucleated RBC 0.000 Nucleated RBC % (auto) 0.0 Anion Gap Estim Creat Clear Calc Estimated GFR Random Glucose Lactic Acid Calcium Total Bilirubin AST ALT Alkaline Phosphatase Troponin I High Sens 29.7 B-Natriuretic Peptide Total Protein Albumin Lipase Urine Color YELLOW Urine Appearance CLOUDY Urine pH 5.5 Ur Specific [place] 1.020 Urine Protein 1+ H Urine Glucose (UA) NEG Urine Ketones NEG Urine Blood 1+ H Urine Nitrite POS H Ur Leukocyte Esterase 3+ H Urine RBC 1-4 Urine WBC TNTC H Ur Squamous Epith Cells NONE Urine Bacteria 4+ COVID-19 (YARELI) COVID-19 Clin Com Influenza Type A (CARTER) Influenza Type B (CARTER) Influenza A & B Note Assessment and Plan (1) Hypernatremia: Status: Acute (2) Toxic metabolic encephalopathy: Status: Acute (3) UTI (urinary tract infection): Status: Acute Plan 85/m with dilated cardiomyopathy, chronic urinary retention self cath at home, fequent falls, discharged from [facility] yesterday after admission for orthostatic hypotension, falls and meds were adjusted with lowering of entreso and Lasix..He comes here with confusion, weakness, sob and noted to have UTI, and probably pneumonia--covid is negative. #Weakness/lethargy d/t UTI -IV Ceftriaxone #UTI--Ceftriaxone -cultures pending #Possible Pneumonia--continue Ceftriaxone as above, robitussin for cough #Toxic Metabolic Encephalopathy d/t UTI, treat underlying UTI--:he's lucid today #Hypernantremia--mild d/t dehydration, repeat labs tomorrow #KYAW on CKd eduarda pre renal--received IV fluid, repeat labs #Chronic systolic heart failure--on Entresto and Lasix, given renal failure, hold lasix and entresto until repeat labs #Chronic urinary retetion--straight cath usually, now sapp #DVT prophylaxis--Heparin Need for inpatient: IV Abx for Pneumonia? and UTI with encephalopathy, KYAW Full code CAre dicussed with daughter at bedside Quality Stroke Does the patient have a stroke diagnosis?: No VTE Prior VTE?: No VTE Risk Level:: Medical - moderate - high VTE Device Contraindication: N/A - Device Ordered VTE Drug Contraindication: N/A - Med Ordered
[2021-10-13 11:44] VITALS: BP 121/62; PULSE 69; RESP 18; TEMP 36.4; O2SAT 95
[2021-10-13 15:15] VITALS: BP 144/70; PULSE 83; RESP 18; TEMP 36.6; O2SAT 94
--- NOTE | 2021-10-13 16:31 | MHC.CM.PN ---
CM ATTEMPTED TO SEE PT WHO WAS RECEIVING NURSING CARE
[2021-10-13] MEDS: cefTRIAXone sodium 1 GM in 0.9 % Sodium Chloride 50 ML IV (18:10)
[2021-10-13 20:00] VITALS: BP 133/56; PULSE 73; RESP 18; TEMP 36.2; O2SAT 93
[2021-10-14] VITALS (10 sets, daily range): BP systolic 96–138; BP diastolic 50–74; PULSE 71–216; RESP 16–18; TEMP 36.1–36.9; O2SAT 85–98
[2021-10-14] MEDS: Heparin Sodium,Porcine 5,000 UNIT/ML VIAL 5000 UNIT SUBCUT ×2 (06:04→19:29)
[2021-10-14] MEDS: Amiodarone HCL 200 MG TABLET 100 MG PO (08:12)
[2021-10-14] MEDS: 0.9 % Sodium Chloride Flush 3 ML SYRINGE IVFLUSH ×2 (08:13→16:50)
--- NOTE | 2021-10-14 09:02 | P.CDIC_ITS ---
CDI Concurrent Query Documentation Clarification: PHYSICIAN'S DOCUMENTATION REQUEST Date of Query: 10/14/21 09 Patient Name: Lionel Knight Admit Date: 10/12/21 Dear Doctor, A review of the medical record indicates additional documentation may be needed. Please review below and update the documentation accordingly. Clinical Indicators: The following clinical information was noted in the record: Risk Factors/Clinical Indicators/Treatments BUN 36/Creat 1.64/Est GFR 40 Per H&P: KYAW, CKD Please clarify which of the following accurately represents the patient's renal status: * Acute renal failure (with type, appropriate) on Chronic Kidney Disease (CKD) - see criteria * CKD, please provide stage - see criteria * Other (please specify) * Unable to determine Criteria for KYAW* Stages of Chronic Kidney Disease* 1. Increase in serum creatinine by ? 0.3 mg/dL Level Description GFR (?26.5 micromol/L) within 48 hours, or G1 Normal or High > 90 2. Increase in serum creatinine to ?1.5 times baseline, G2 Mildly decreased 60 ? 89 which is known or presumed to have occurred within 7 days, or G3a Mildly to moderately decreased 45 ? 59 3. Urine volume <0.5 mL/kg/hour for six hours G3b Moderately to severely decreased 30 - 44 G4 Severely decreased 15 ? 29 G5 Kidney failure < 15 *Source: Kidney Disease: Improving Global Outcomes (KDIGO) 2012 Use of terms such as suspected, likely, concern for, or probable (associated with a specific diagnosis that is being evaluated, monitored, or treated as if it exists) are acceptable and can be coded in the inpatient setting, when documented at the time of discharge. Thank you, Val Maldonado RN Extension: [phone] Please use your independent medical judgment in providing your response. THIS QUERY IS PART OF THE PERMANENT MEDICAL RECORD Provider Response: CKD Stage 2
--- NOTE | 2021-10-14 11:09 | MHC.CM.PN ---
Patient is here with Toxic Metabolic Encephalopathy; CM spoke with Daughter/HCP/Dariana @ [phone]. Patient came from [facility] where he was for STR for < 12 hours and the plan is NOT for him to return there. Family is looking into [facility] options and considering [facility] to continue STR, pending PT eval. CM has initiated and will follow for dc planning. Patient lives in a house with his and uses a walker to assist with mobility. PCP is Dr. Leandro Montalvo and Patient has received Moderna/Covid vax X4.
--- NOTE | 2021-10-14 12:14 | P.PNIM_ITS ---
Subjective Subjective Date of Service: 10/14/21 Interval History: f/u on UTI, KYAW, interval history: sounds more incoherent today Review of Systems Gen: no fever Resp: no sob, no cough CV: no chest, no [place], no leg edema GI: No n/v, no abd pain Neuro: No confusion Physical Exam Vital Signs: Vital Signs: Last Vital Signs Temp 97.4 F 10/14/21 11:48 Pulse 100 10/14/21 11:48 Resp 18 10/14/21 11:48 BP 96/53 L 10/14/21 11:48 Pulse Ox 85 L 10/14/21 11:57 O2 Del Method 10/14/21 11:57 O2 Flow Rate 2 10/14/21 11:48 BMI result Body Mass Index 21.5 Objective Data Active Medications Amiodarone HCl (Amiodarone Hcl 200 Mg Tablet) 100 mg PO DAILY [facility] Last Admin: 10/14/21 08:12 Dose: 100 mg Documented By: CRISTO Bisacodyl (Bisacodyl 10 Mg Supp.Rect) 10 mg NE DAILY PRN PRN Reason: Constipation Fluticasone Propionate (Fluticasone Propionate Nasal 16 Gm [place]) 1 spray NOSTRIL-B DAILY PRN PRN Reason: Allergic Symptoms Last Admin: 10/13/21 10:00 Dose: 1 spray Documented By: PEDRO Guaifenesin (Guaifenesin 100 Mg/5 Ml Liquid) 5 ml PO Q4H PRN PRN Reason: Cough Heparin Sodium (Porcine) (Heparin Sodium,Porcine 5,000 Unit/Ml Vial) 5,000 unit SUBCUT Q12H [facility] Last Admin: 10/14/21 06:04 Dose: 5,000 unit Documented By: ALEXIS Ceftriaxone Sodium 1 gm/ (Sodium Chloride) 50 mls @ 100 mls/hr IV Q24H [facility] Last Infusion: 10/13/21 18:45 Dose: 0 mls/hr Documented By: PEDRO Latanoprost (Latanoprost 0.005 % Ophth Shruthi 2.5 Ml Drops) 1 drop EYE-LEFT TID@0800,1400,2000 [facility] Last Admin: 10/14/21 08:13 Dose: Not Given Documented By: CRISTO Non-Admin Reason: Patient Refused Magnesium Hydroxide (Milk Of Magnesia 30 Ml Oral.Susp) 30 ml PO DAILY PRN PRN Reason: Constipation Last Admin: 10/13/21 10:00 Dose: 30 ml Documented By: PEDRO Pharmacy Consult (Consult Rx Perform Med Rec) 1 each MISCELLANE ONCE PRN PRN Reason: Consult order Sodium Biphosphate/Sodium Phosphate (Sodium Phosphate,[place]-Dibasic 133 Ml Enema) 118 ml NE DAILY PRN PRN Reason: Constipation Sodium Chloride (0.9 % Sodium Chloride Flush 3 Ml Syringe) 3 ml IVFLUSH QSHIFT [facility] Last Admin: 10/14/21 08:13 Dose: 3 ml Documented By: CRISTO Labs CBC & Chem 7: 10/12/21 17:18 10/12/21 12:35 Microbiology Microbiology Results: Microbiology 10/12/21 14:39 Urine Culture - Final Urine clean catch - Clean Catch Midstream Escherichia coli 10/12/21 13:05 Blood Culture - Preliminary Blood - Venous No growth after 24 hours. 10/12/21 12:35 Blood Culture - Preliminary Blood - Venous No growth after 24 hours. Assessment and Plan (1) Hypernatremia: Status: Acute (2) Toxic metabolic encephalopathy: Status: Acute (3) UTI (urinary tract infection): Status: Acute Plan 85/m with dilated cardiomyopathy, chronic urinary retention self cath at home, fequent falls, discharged from [facility] yesterday after admission for orthostatic hypotension, falls and meds were adjusted with lowering of entreso and Lasix..He comes here with confusion, weakness, sob and noted to have UTI, and probably pneumonia--covid is negative. 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 and UTI with encephalopathy, KYAW Full code CAre dicussed with daughter at bedside Quality Stroke Does the patient have a stroke diagnosis?: No VTE Prior VTE?: No VTE Risk Level:: Medical - moderate - high VTE Device Contraindication: N/A - Device Ordered VTE Drug Contraindication: N/A - Med Ordered
[2021-10-14 13:07] LABS: Anion Gap 15 (12-20); Blood Urea Nitrogen 38 mg/dL (9-16); Calcium 9.4 mg/dL (8.4-10.2); Carbon Dioxide 33 mmol/L (22-29); Chloride 104 mmol/L (96-108); Creatinine Clr Calc Pharmacy 44.7; Estimated Glomerular Filt Rate 56; Glucose Random 167 mg/dL (60-115); Potassium 4.1 mmol/L (3.3-5.1); Sodium 148 mmol/L (135-145)
--- NOTE | 2021-10-14 13:40 | MHC.CM.PN ---
Patient/family's first choice SNF for STR is [facility], second is [facility] and third is [facility]. CM will follow.
[2021-10-14] MEDS: cefTRIAXone sodium 1 GM in 0.9 % Sodium Chloride 50 ML IV (16:47)
[2021-10-15] VITALS (34 sets, daily range): BP systolic 69–163; BP diastolic 44–102; PULSE 60–107; RESP 15–20; TEMP 33.3–38.8; O2SAT 94–100; BMI 21.5
--- NOTE | 2021-10-15 | ECG_ITS ---
Test Reason : cp Blood Pressure : / mmHG Vent. Rate : 064 BPM Atrial Rate : 064 BPM P-R Int : 246 ms QRS Dur : 180 ms QT Int : 508 ms P-R-T Axes : 085 -54 030 degrees QTc Int : 524 ms Sinus rhythm with 1st degree A-V block with Premature atrial complexes with Aberrant conduction Left axis deviation Right bundle branch block Inferior infarct , age undetermined Anterior infarct , age undetermined Abnormal ECG When compared with ECG of 12-OCT-2021 11:52, Aberrant conduction is now Present Referred By: John Solis Electronically Signed By:LEVON YOUNG
[2021-10-15] MEDS: 0.9 % Sodium Chloride Flush 3 ML SYRINGE IVFLUSH ×3 (01:03→23:22)
[2021-10-15 04:07] LABS: Glucose, Whole Blood 174 mg/dL (60-115)
[2021-10-15 04:22] LABS: Basophils Absolute Auto 0.1 X10*3/uL (0.0-0.2); Basophils Percent Auto 0.3 % (0-2); Eosinophils Absolute Auto 0.1 X10*3/uL (0.0-0.4); Eosinophils Percent Auto 0.6 % (0-4); Hematocrit 43.6 % (42.0-52.0); Imm Gran Pct Auto 0.6 % (0.0-0.4); Lymphocytes Absolute Auto 0.9 X10*3/uL (1.2-4.9); Lymphocytes Percent Auto 5.9 % (20-40); MANUAL DIFF FLAG NO; Mean Corpuscular HGB Conc 29.8 g/dl (31.0-36.0); Mean Corpuscular Hemoglobin 31.2 pg (27.0-33.0); Mean Corpuscular Volume 104.6 fL (80.0-98.0); Mean Platelet Volume 9.7 fL (9.4-12.4); Monocytes Absolute Auto 1.4 X10*3/uL (0.1-1.2); Monocytes Percent Auto 8.5 % (2-11); NRBC Pct Auto 0.1 /100WBC (0.0-0.2); Neutrophils Absolute Auto 13.4 x10*3/uL (2.0-8.3); Neutrophils Percent Auto 84.1 % (45-73); Platelet Count 302 X10*3/uL (160-400); Red Blood Count 4.17 X10*6/uL (4.60-5.80); Red Cell Distribution Width 13.5 % (11.0-16.0)
[2021-10-15 04:23] LABS: ABG Base Excess 4.1 mmol/L; ABG HCO3 38 mmol/L (22-26); ABG pCO2 129 mmHg (32-45); ABG pH 7.08 (7.35-7.45); ABG pO2 335 mmHg (83-108)
[2021-10-15 04:26] LABS: ABG Refer to POC result
[2021-10-15 04:28] LABS: Prothrombin Time 11.5 SEC (9.9-13.0)
[2021-10-15 04:38] LABS: Lactic Acid 1.1 mmol/L (0.5-2.0)
[2021-10-15 04:42] LABS: Anion Gap 11 (12-20); Blood Urea Nitrogen 41 mg/dL (9-16); Calcium 9.5 mg/dL (8.4-10.2); Carbon Dioxide 38 mmol/L (22-29); Chloride 104 mmol/L (96-108); Creatinine Clr Calc Pharmacy 35.2; Estimated Glomerular Filt Rate 43; Glucose Random 208 mg/dL (60-115); Potassium 4.1 mmol/L (3.3-5.1); Sodium 149 mmol/L (135-145)
[2021-10-15 04:50] LABS: Troponin-I High Sensitivity 30.3 ng/L (<3.5-35.0)
--- NOTE | 2021-10-15 05:02 | PM.EVENT ---
Event Note Date of Service: 10/15/21 Event Note: Patient was found by nursing staff laying across his bed, found to be hypoxic with O2 in the 50s, hypotensive common completely unresponsive. Nurse reports that the last well-known time was at 12:00 when he was awake and responsive. On my arrival patient was a non-rebreather satting 100%, blood pressure of 110s over 50s, heart rate in the 60s. Patient is completely unresponsive, not even to painful stimuli. Glucose of 172. ABG was obtained which showed Respiratory acidosis with hypercapnia. Case discussed with corrections unit supervisor and patient will be Transferred to the ICU
[2021-10-15 05:32] LABS: VBG Base Excess 10.9 mmol/L; VBG HCO3 39 mmol/L (22-26); VBG pCO2 68 mmHg; VBG pH 7.36 (7.32-7.43); VBG pO2 66 mmHg
--- NOTE | 2021-10-15 05:39 | W.PM.CCHP ---
Procedures Date of Service Date of Service: 10/15/21 Central Line Placement Right IJ: Central Line Comments: venous access for pressors needed Consent for Procedure: Emergent-no informed consent obtained Time out performed: Yes Sterile Technique Used: Yes Patient placed on monitor/pulse ox: Yes MD prep: mask, gown and gloves Central line prep: Chlorhexidine scrub and sterile drapes applied Ultrasound used for placement: Yes Central line lumen inserted: triple Post procedure: sutured in place, good blood return, all ports aspirated, flushed, capped and sterile dressing applied Post procedure x-ray: tip of catheter in good position and no pneumothorax seen Patient tolerated procedure: well and no complications Complications: none Intubation Consent for Procedure: Emergent-no informed consent obtained Time out performed: Yes Sedative: propofol Mg given: 50 Paralytic: rocuronium Mg given: 50 Laryngoscope: fiber optic video scope ET tube size: 7.5 ET tube uncuffed: Yes Tube secured depth (cm): 25 Tube secured location: lips Tube placement confirmation: visualized tube passing through cords, equal breath sounds bilaterally, no breath sounds over epigastrium and confirmation by capnometry Patient tolerated procedure: well and no complications Intubation complications: hypotension
--- NOTE | 2021-10-15 05:41 | W.PM.CCCN ---
History of Present Illness Data of Consult Service Date: 10/15/21 Requesting physician: John Solis Primary Care Provider: RHINA NICK [facility] Reason for consult: pt found unresponsive, Per Arnaldo INGRAM, pt found to be hypoxic in the 50's, BP 110/50, HR 60's, glucose 172, ABG showed hypercapnia, pt unresponsive to painful stimuli. As patient unable to secure his own airwa in CO2 narcosis, he will be transferred to ICU for intubation. Case discussed with Dr. Farfan. Review of Systems Review of Systems: Yes all other systems are reviewed and are negative [facility] Past Medical History Medical History (Updated 10/15/21 @ 13:41 by Sobia Farfan MD) Bifascicular bundle branch block Chronic hypercapnic respiratory failure Dilated cardiomyopathy History of TIA (transient ischemic attack) HTN (hypertension) Orthostatic hypotension Systolic CHF Family History Family History Other Guillain Rainey? syndrome Social History Social History Household Members: Spouse Housing: Other Housing Other:: lives at [facility] Do you presently have visiting nurse or other home services: No Alcohol intake: former Patient Tobacco Use Status: Former Tobacco user Second Hand Smoke Exposure: No Advance Directives Date on File: 10/13/21 service: Yes Current occupational status: retired [employer] Allergies Allergy/AdvReac Type Severity Reaction Status Date / Time No Known Allergies Allergy Verified 10/12/21 11:14 Active Medications: Current Medications Amiodarone HCl (Amiodarone Hcl 200 Mg Tablet) 100 mg PO DAILY [facility] Last Admin: 10/14/21 08:12 Dose: 100 mg Atropine Sulfate (Atropine Sulfate 1 Mg/10 Ml Syringe) 0.5 mg IVPUSH ONCE PRN PRN Reason: hr<45 Bisacodyl (Bisacodyl 10 Mg Supp.Rect) 10 mg MN DAILY PRN PRN Reason: Constipation Fluticasone Propionate (Fluticasone Propionate Nasal 16 Gm [place]) 1 spray NOSTRIL-B DAILY PRN PRN Reason: Allergic Symptoms Last Admin: 10/13/21 10:00 Dose: 1 spray Guaifenesin (Guaifenesin 100 Mg/5 Ml Liquid) 5 ml PO Q4H PRN PRN Reason: Cough Heparin Sodium (Porcine) (Heparin Sodium,Porcine 5,000 Unit/Ml Vial) 5,000 unit SUBCUT Q12H [facility] Last Admin: 10/14/21 19:29 Dose: 5,000 unit Ceftriaxone Sodium 1 gm/ (Sodium Chloride) 50 mls @ 100 mls/hr IV Q24H [facility] Last Infusion: 10/14/21 17:45 Dose: Infused Latanoprost (Latanoprost 0.005 % Ophth Shruthi 2.5 Ml Drops) 1 drop EYE-LEFT TID@0800,1400,1999 [facility] Last Admin: 10/14/21 20:10 Dose: Not Given Magnesium Hydroxide (Milk Of Magnesia 30 Ml Oral.Susp) 30 ml PO DAILY PRN PRN Reason: Constipation Last Admin: 10/13/21 10:00 Dose: 30 ml Pharmacy Consult (Consult Rx Perform Med Rec) 1 each MISCELLANE ONCE PRN PRN Reason: Consult order Sodium Biphosphate/Sodium Phosphate (Sodium Phosphate,[place]-Dibasic 133 Ml Enema) 118 ml MN DAILY PRN PRN Reason: Constipation Sodium Chloride (0.9 % Sodium Chloride Flush 3 Ml Syringe) 3 ml IVFLUSH QSHIFT [facility] Last Admin: 10/15/21 01:03 Dose: 3 ml Home Medications Medication Instructions Recorded Confirmed Last Taken Type acetaminophen 325 mg tablet 650 mg PO Q6H PRN Pain 10/12/21 10/12/21 Unknown History amiodarone 100 mg tablet 100 mg PO DAILY 10/12/21 10/12/21 10/11/21 History bisacodyl 10 mg rectal suppository 10 mg MN DAILY PRN Constipation 10/12/21 10/12/21 Unknown History fluticasone propionate 50 1 spray intranasal DAILY PRN 10/12/21 10/12/21 Unknown History mcg/actuation nasal Allergic Symptoms spray,suspension furosemide 20 mg tablet 60 mg PO DAILY 10/12/21 10/12/21 Unknown History latanoprost 0.005 % eye drops 1 drp ophthalmic-Left 10/12/21 10/12/21 Unknown History TID@0800,1400,1999 magnesium hydroxide 400 mg/5 mL 30 ml PO DAILY PRN Constipation 10/12/21 10/12/21 Unknown History oral suspension (Milk of Magnesia) sacubitril 24 mg-valsartan 26 mg 1 tab PO DAILY 10/12/21 10/12/21 Unknown History tablet (Entresto) sodium phosphates 19 gram-7 118 ml MN DAILY PRN Constipation 10/12/21 10/12/21 Unknown History gram/118 mL enema (Fleet Enema) Physical Exam Vital Signs: Vital Signs: Last Vital Signs Temp 93.2 F L 10/15/21 04:11 Pulse 107 H 10/15/21 05:03 Resp 17 10/15/21 05:03 BP 69/45 L 10/15/21 05:03 Pulse Ox 100 10/15/21 05:03 O2 Del Method 10/15/21 05:03 O2 Flow Rate 2 10/14/21 23:37 FiO2 100 10/15/21 05:03 BMI result Body Mass Index 21.5 Const: General: patient obtunded Nutritional Appearance: thin Orientation/consciousness: patient obtunded HEENT: Head: Yes normal to inspection, Yes No palpable skull fracture present, Yes normocephalic and Yes atraumatic General nose exam: Normal external nose present Face and sinus: Yes normal facial exam Mouth: Normal oral and palatal mucosa present and lip normal Teeth and gingiva: edentulous Eyes: General: appearance normal, both eyes and all related structures Pupils: Pinpoint pupils Neck: Neck: Yes normal visual inspection and Yes trachea midline Resp: Auscultation: clear to auscultation bilaterally Cardio: Jugular venous distension: no JVD Rate: regular rate Rhythm: regular rhythm Heart sounds: normal S1 and S2 GI: Inspection: Yes normal to inspection Palpation (GI): Soft to palpation Neuro: General: patient obtunded Comatose Patient: No response to noxious stimuli present Results Labs CBC & Chem 7: 10/16/21 05:30 10/16/21 05:30 Labs: Short CBC 10/15/21 Range/Units 04:14 WBC 16.0 H (4.8-10.8) X10*3/uL Hgb 13.0 L (14.0-18.0) g/dl Hct 43.6 (42.0-52.0) % Plt Count 302 (160-400) X10*3/uL BMP 10/14/21 10/15/21 12:38 04:14 Sodium 148 H 149 H Potassium 4.1 4.1 Chloride 104 104 Carbon Dioxide 33 H 38 H BUN 38 H 41 H Creatinine 1.23 1.56 H Calcium 9.4 9.5 Microbiology Microbiology Results: Microbiology 10/12/21 13:05 Blood - Venous Blood Culture - Preliminary No growth after 48 hours. 10/12/21 12:35 Blood - Venous Blood Culture - Preliminary No growth after 48 hours. 10/12/21 14:39 Urine clean catch - Clean Catch Midstream Urine Culture - Final Escherichia coli Assessment and Plan (1) Acute and chronic respiratory failure with hypoxia: Status: Acute (2) Acute hypercapnic respiratory failure: Status: Acute (3) Aspiration pneumonitis: Status: Acute Plan Pt brought to the ICU, intubated, TLC placed. Pressors started bc pt had hypotnesion due to intubation medications (propofol), this was not due to sepsis. Repeat VBG shows marked improvement. Critical Care Time Critical Care Time (minutes): 90
[2021-10-15] MEDS: Heparin Sodium,Porcine 5,000 UNIT/ML VIAL 5000 UNIT SUBCUT ×2 (05:53→18:32)
--- NOTE | 2021-10-15 06:09 | PC.NURSE ---
At approximately 0415 it was brought to TW's attention that this pt was slumped over his side rail, and that something was very wrong with the pt. Another RN was able to obtain vitals, when it was noted that the pt's O2 sat was 55%. A nonrebreather was placed on the pt and O2 sat improved steadily until reaching 100%. MD notified, placed orders and saw pt in room. ABGs were obtained with critical results. Nonrebreather was removed and pt was placed back on 2L NC. Pt was transported to ICU for close monitoring.
[2021-10-15] MEDS: propofoL 200 MG/20 ML VIAL 50 MG IVPUSH (06:10)
[2021-10-15] MEDS: Rocuronium Bromide 50 MG/5 ML VIAL IVPUSH (06:11)
[2021-10-15] MEDS: Phenylephrine HCL 10 MG/ML VIAL IVPUSH (06:12)
[2021-10-15] MEDS: KCl 20 mEq in 5% Dex/0.45% Sod 20 MEQ/1,000 ML IV.SOLN 80 MEQ IVCONT ×2 (07:34→20:59)
[2021-10-15] MEDS: vancomycin HCL 1,000 MG in 0.9 % Sodium Chloride 250 ML 270 MG IV (07:34)
--- NOTE | 2021-10-15 08:20 | PC.NURSE ---
Pt transferred to ICU at approx 0500. Upon initial assessment- pt unresponsive, emergently intubated, propofol 50mg IVP and rocuronium 50 mg IVP given for RSI. During intubation, BP dropped as low as 38/20- total of phenylephrine 0.4 mg IVP given by PA for immediate support. ETT #7.5, 25 cm at lip. Vent settings- AC 16/450/5/40%, synchronous. TLC placed to R IJ, OGT placed, confirmed by pCXR. Weldon in place. Skin intact- ?stage 1 to coccyx, pictures placed in chart.
[2021-10-15] MEDS: Chlorhexidine Gluc Oral Rinse 15 ML MOUTHWASH BUCCAL ×3 (09:13→20:59)
[2021-10-15] MEDS: Amiodarone HCL 200 MG TABLET 100 MG PO (09:13)
[2021-10-15] MEDS: propofoL 1,000 MG/100 ML VIAL 8.64 MG IVCONT ×2 (09:14→16:30)
--- NOTE | 2021-10-15 11:17 | MHC.CLN ---
RE: CONSULT PT IS INTUBATED AND SEDATED RECOMMEND JEVITY 1.0 AT MAX GAOL RATE 75ML/HR WITH 240ML FREE WATER FLUSHES Q SHIFT TO PROVIDE 1908KCALS (2136KCALS WITH SEDATION; 30KCALS/KG), 80G PROTEIN (1.1G/KG), 2313ML TOTAL WATER FROM FORMULA AND FLUSHES (32ML/KG) START FORMULA AT 20ML/HR AND INCREASE BY 10ML Q 4 HRS UNTIL MAX GOAL IS ACHIEVED MONITOR TOLERANCE, RESIDUALS AND LYTES SEE FULL CLINICAL NUTRITION ASSESSMENT
--- NOTE | 2021-10-15 13:35 | PM.CCPN ---
Subjective Subjective Date of Service: 10/15/21 Interval History: 85-year-old male apparently with E coli urinary tract infection on ceftriaxone found unresponsive this morning with acute on chronic hypercarbic and hypoxic respiratory failure clearly requiring intubation which was performed bedside echo in a demonstrated mild diffuse hypokinesis of the ventricle potentially an ejection fraction 45-50% diffuse hypokinesis mild aortic valve sclerosis with no stenosis no primary valve or pericardial disease and review of his chest CT scan does show bibasilar infiltrates and/or atelectasis and evidence of tree in bud configuration with some dilated and thick wall bronchi so the might be some chronic possible and no aspiration causing some degree of a bronchiolitis Critical Care Time (minutes): 45 Physical Exam Vital Signs: Vital Signs: Last Vital Signs Temp 96.7 F L 10/15/21 12:00 Pulse 71 10/15/21 13:00 Resp 16 10/15/21 13:00 BP 97/49 L 10/15/21 13:00 Pulse Ox 100 10/15/21 13:00 O2 Del Method 10/15/21 13:00 O2 Flow Rate 2 10/14/21 23:37 FiO2 40 10/15/21 13:00 BMI result Body Mass Index 21.5 On minimal Levophed support in normal sinus rhythm at a rate of 70 with bifascicular block but no acute ST-T changes and currently compensated oxygen saturation 100% blood pressure 100/50 Abdomen soft no organomegaly No accessory muscle or diaphragmatic effort No acrocyanosis no rash Objective Data Labs CBC & Chem 7: 10/15/21 04:14 10/15/21 04:14 Labs: Laboratory Results - last 24 hr 10/15/21 10/15/21 10/15/21 04:02 04:13 04:14 WBC RBC Hgb Hct MCV MCH MCHC RDW Plt Count MPV Immature Gran % (Auto) Neut % (Auto) Lymph % (Auto) [place] % (Auto) Eos % (Auto) Baso % (Auto) Lymph # (Auto) [place] # (Auto) Eos # (Auto) Baso # (Auto) Abs Immat Gran (auto) Absolute Neuts (auto) Absolute Nucleated RBC Nucleated RBC % (auto) PT INR O2 Saturation ABG pH at Pt Temp ABG pCO2 at Pt Temp ABG pO2 at Pt Temp ABG HCO3 ABG Base Excess (Actual) VBG pH VBG pCO2 VBG pO2 VBG HCO3 VBG O2 Saturation VBG Base Excess Sodium Potassium Chloride Carbon Dioxide Anion Gap BUN Creatinine Estim Creat Clear Calc Estimated GFR POC Glucose 174 H Random Glucose Lactic Acid 1.1 Calcium Troponin I High Sens 30.3 10/15/21 10/15/21 10/15/21 04:14 04:14 04:14 WBC 16.0 H RBC 4.17 L Hgb 13.0 L Hct 43.6 MCV 104.6 H MCH 31.2 MCHC 29.8 L RDW 13.5 Plt Count 302 MPV 9.7 Immature Gran % (Auto) 0.6 H Neut % (Auto) 84.1 H Lymph % (Auto) 5.9 L [place] % (Auto) 8.5 Eos % (Auto) 0.6 Baso % (Auto) 0.3 Lymph # (Auto) 0.9 L [place] # (Auto) 1.4 H Eos # (Auto) 0.1 Baso # (Auto) 0.1 Abs Immat Gran (auto) 0.10 H Absolute Neuts (auto) 13.4 H Absolute Nucleated RBC 0.020 H Nucleated RBC % (auto) 0.1 PT 11.5 INR 1.0 O2 Saturation ABG pH at Pt Temp ABG pCO2 at Pt Temp ABG pO2 at Pt Temp ABG HCO3 ABG Base Excess (Actual) VBG pH VBG pCO2 VBG pO2 VBG HCO3 VBG O2 Saturation VBG Base Excess Sodium 149 H Potassium 4.1 Chloride 104 Carbon Dioxide 38 H Anion Gap 11 L BUN 41 H Creatinine 1.56 H Estim Creat Clear Calc 35.2 Estimated GFR 43 POC Glucose Random Glucose 208 H Lactic Acid Calcium 9.5 Troponin I High Sens 10/15/21 10/15/21 04:14 05:28 WBC RBC Hgb Hct MCV MCH MCHC RDW Plt Count MPV Immature Gran % (Auto) Neut % (Auto) Lymph % (Auto) [place] % (Auto) Eos % (Auto) Baso % (Auto) Lymph # (Auto) [place] # (Auto) Eos # (Auto) Baso # (Auto) Abs Immat Gran (auto) Absolute Neuts (auto) Absolute Nucleated RBC Nucleated RBC % (auto) PT INR O2 Saturation 100.0 ABG pH at Pt Temp 7.08 L* ABG pCO2 at Pt Temp 129 H* ABG pO2 at Pt Temp 335 H ABG HCO3 38 H ABG Base Excess (Actual) 4.1 VBG pH 7.36 VBG pCO2 68 VBG pO2 66 VBG HCO3 39 H VBG O2 Saturation 91.0 VBG Base Excess 10.9 Sodium Potassium Chloride Carbon Dioxide Anion Gap BUN Creatinine Estim Creat Clear Calc Estimated GFR POC Glucose Random Glucose Lactic Acid Calcium Troponin I High Sens Microbiology Microbiology Results: Microbiology 10/12/21 13:05 Blood - Venous Blood Culture - Preliminary No growth after 48 hours. 10/12/21 12:35 Blood - Venous Blood Culture - Preliminary No growth after 48 hours. 10/12/21 14:39 Urine clean catch - Clean Catch Midstream Urine Culture - Final Escherichia coli Progress Note: A&P Assessment and plan (1) Acute hypercapnic respiratory failure: Status: Acute (2) Chronic hypercapnic respiratory failure: (3) Acute and chronic respiratory failure with hypoxia: Status: Acute (4) Aspiration pneumonitis: Status: Acute (5) Hypercarbia: Status: Acute (6) Hypernatremia: Status: Acute (7) Toxic metabolic encephalopathy: Status: Acute (8) UTI (urinary tract infection): Status: Acute (9) Congestive cardiomyopathy: Status: Acute (10) Bifascicular bundle branch block: Plan Plan is to add vancomycin to the ceftriaxone and possibly anaerobic coverage with metronidazole Quality Stroke Does the patient have a stroke diagnosis?: No VTE Prior VTE?: No VTE Risk Level:: Medical - moderate - high VTE Device Contraindication: N/A - Device Ordered VTE Drug Contraindication: N/A - Med Ordered
[2021-10-15] MEDS: Clindamycin Phosphate/D5W 600 MG/50 ML PIGGYBACK 100 MG IV ×2 (15:38→20:59)
[2021-10-15] MEDS: Latanoprost 0.005 % Ophth Sol 2.5 ML DROPS 1 DROP EYE-LEFT ×2 (15:44→20:59)
[2021-10-15] MEDS: cefTRIAXone sodium 1 GM in 0.9 % Sodium Chloride 50 ML IV (16:23)
[2021-10-15] MEDS: propofoL 1,000 MG/100 ML VIAL 21.6 MG IVCONT (23:30)
[2021-10-16] VITALS (30 sets, daily range): BP systolic 105–140; BP diastolic 41–69; PULSE 54–90; RESP 11–19; TEMP 34.1–37.4; O2SAT 88–99
[2021-10-16] MEDS: propofoL 1,000 MG/100 ML VIAL 21.6 MG IVCONT ×2 (02:50→07:27)
[2021-10-16 05:35] LABS: VBG Base Excess 9.2 mmol/L; VBG HCO3 32 mmol/L (22-26); VBG pCO2 37 mmHg; VBG pH 7.54 (7.32-7.43); VBG pO2 42 mmHg
[2021-10-16 05:36] LABS: MANUAL DIFF FLAG NO
[2021-10-16 05:40] LABS: Basophils Absolute Auto 0.1 X10*3/uL (0.0-0.2); Basophils Percent Auto 0.3 % (0-2); Eosinophils Absolute Auto 0.4 X10*3/uL (0.0-0.4); Eosinophils Percent Auto 2.6 % (0-4); Hematocrit 33.4 % (42.0-52.0); Hemoglobin 10.8 g/dl (14.0-18.0); Imm Gran Pct Auto 0.7 % (0.0-0.4); Lymphocytes Absolute Auto 1.4 X10*3/uL (1.2-4.9); Lymphocytes Percent Auto 9.3 % (20-40); Mean Corpuscular HGB Conc 32.3 g/dl (31.0-36.0); Mean Corpuscular Hemoglobin 31.5 pg (27.0-33.0); Mean Corpuscular Volume 97.4 fL (80.0-98.0); Monocytes Absolute Auto 1.3 X10*3/uL (0.1-1.2); Monocytes Percent Auto 8.6 % (2-11); NRBC Pct Auto 0.2 /100WBC (0.0-0.2); Neutrophils Absolute Auto 11.9 x10*3/uL (2.0-8.3); Neutrophils Percent Auto 78.5 % (45-73); Platelet Count 267 X10*3/uL (160-400); Red Blood Count 3.43 X10*6/uL (4.60-5.80); Red Cell Distribution Width 13.6 % (11.0-16.0); White Blood Count 15.2 X10*3/uL (4.8-10.8)
[2021-10-16 06:03] LABS: Anion Gap 12 (12-20); Blood Urea Nitrogen 37 mg/dL (9-16); Calcium 8.8 mg/dL (8.4-10.2); Carbon Dioxide 31 mmol/L (22-29); Chloride 105 mmol/L (96-108); Creatinine Clr Calc Pharmacy 40.4; Estimated Glomerular Filt Rate 50; Glucose Random 181 mg/dL (60-115); Phosphorus 1.1 mg/dL (2.7-4.5); Potassium 3.8 mmol/L (3.3-5.1); Sodium 144 mmol/L (135-145)
[2021-10-16 06:07] LABS: Venous Blood Gas Refer to POC result
[2021-10-16] MEDS: Heparin Sodium,Porcine 5,000 UNIT/ML VIAL 5000 UNIT SUBCUT ×2 (06:13→18:37)
[2021-10-16] MEDS: Pantoprazole Sodium 40 MG/10 ML VIAL IVPUSH (06:14)
[2021-10-16] MEDS: Clindamycin Phosphate/D5W 600 MG/50 ML PIGGYBACK 100 MG IV ×3 (06:14→21:40)
--- NOTE | 2021-10-16 06:45 | HE.PHANOTE ---
Verified that pt has central line with Elpidio 0645 10/16/21
[2021-10-16] MEDS: Chlorhexidine Gluc Oral Rinse 15 ML MOUTHWASH BUCCAL ×3 (07:24→19:42)
[2021-10-16] MEDS: Potassium Phosphate/NS 15 MMOL/250 ML PLAST..BAG 62.5 MMOL IV ×2 (07:25→11:41)
[2021-10-16] MEDS: 0.9 % Sodium Chloride Flush 3 ML SYRINGE IVFLUSH ×2 (07:43→17:28)
[2021-10-16] MEDS: Latanoprost 0.005 % Ophth Sol 2.5 ML DROPS 1 DROP EYE-LEFT ×3 (07:43→19:42)
[2021-10-16] MEDS: KCl 20 mEq in 5% Dex/0.45% Sod 20 MEQ/1,000 ML IV.SOLN 80 MEQ IVCONT ×2 (09:45→21:40)
--- NOTE | 2021-10-16 09:46 | MHC.CLN ---
F/U PT REMAINS INTUBATED AND SEDATED DISCUSSED AT ROUNDS WITH PT RECEIVING JEVITY 1.0 AT MAX GAOL RATE 75ML/HR WITH 240ML FREE WATER FLUSHES Q SHIFT PROVIDES 1908KCALS (2478KCALS WITH SEDATION; 34KCALS/KG), 80G PROTEIN (1.1G/KG), 2313ML TOTAL WATER FROM FORMULA AND FLUSHES (32ML/KG) NSG REPORTED TOLERATING TF WELL WITH LOW RESIDUALS CONTINUE TO MONITOR TOLERANCE, RESIDUALS AND LYTES
--- NOTE | 2021-10-16 12:04 | P.PNCC_ITS ---
Subjective Subjective Date of Service: 10/16/21 Interval History: 85-year-old male we will called as a rapid response because he was unresponsive blood gas revealed an acute on chronic hypercarbic and hypoxic respiratory failure ultimately noted to have bibasilar pneumonia probable aspiration basis and according to family it seems that he does have trouble specially with thin liquids At home apparently he has been falling and how much of this might be on the basis of his respiratory failure as still now remains to be seen but currently intubated and antibiotic coverage for an aspiration In addition he has a background history of a congestive cardiomyopathy my a suggested ejection fraction with diffuse hypokinesis 45% to the high 40s and he had been on Entresto currently is supported with Levophed because of blood pressure requirements on propofol Critical Care Time (minutes): 45 Physical Exam Vital Signs: Vital Signs: Last Vital Signs Temp 97.4 F 10/16/21 08:00 Pulse 67 10/16/21 11:00 Resp 15 10/16/21 11:00 BP 109/42 L 10/16/21 11:00 Pulse Ox 98 10/16/21 11:00 O2 Del Method 10/16/21 11:00 O2 Flow Rate 2 10/14/21 23:37 FiO2 50 10/16/21 11:20 BMI result Body Mass Index 21.5 Blood pressure on Levophed 105/49 with a mean of 63 heart rate is sinus rhythm with first-degree AV block and 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 rate of 65 with occasional PVCs He did awaken but agitated and had to be Re sedated since that time we been fighting with his oxygen saturation but moving all 4 extremities Benign abdomen Diminished breath sounds without adventitious sounds without accessory muscle use Objective Data Labs CBC & Chem 7: 10/16/21 05:30 10/16/21 05:30 Labs: Laboratory Results - last 24 hr 10/16/21 10/16/21 10/16/21 05:30 05:30 05:31 WBC 15.2 H RBC 3.43 L Hgb 10.8 L Hct 33.4 L D MCV 97.4 D MCH 31.5 MCHC 32.3 RDW 13.6 Plt Count 267 MPV 10.0 Immature Gran % (Auto) 0.7 H Neut % (Auto) 78.5 H Lymph % (Auto) 9.3 L [place] % (Auto) 8.6 Eos % (Auto) 2.6 Baso % (Auto) 0.3 Lymph # (Auto) 1.4 [place] # (Auto) 1.3 H Eos # (Auto) 0.4 Baso # (Auto) 0.1 Abs Immat Gran (auto) 0.10 H Absolute Neuts (auto) 11.9 H Absolute Nucleated RBC 0.030 H Nucleated RBC % (auto) 0.2 VBG pH 7.54 H VBG pCO2 37 VBG pO2 42 VBG HCO3 32 H VBG O2 Saturation 71.0 VBG Base Excess 9.2 Sodium 144 Potassium 3.8 Chloride 105 Carbon Dioxide 31 H Anion Gap 12 BUN 37 H Creatinine 1.36 Estim Creat Clear Calc 40.4 Estimated GFR 50 Random Glucose 181 H Calcium 8.8 D Phosphorus 1.1 L Magnesium 2.0 Microbiology Microbiology Results: Microbiology 10/15/21 12:00 Sputum - Induced Gram Stain - Final 10/12/21 13:05 Blood - Venous Blood Culture - Preliminary No growth after 48 hours. 10/12/21 12:35 Blood - Venous Blood Culture - Preliminary No growth after 48 hours. 10/12/21 14:39 Urine clean catch - Clean Catch Midstream Urine Culture - Final Escherichia coli Progress Note: A&P Assessment and plan (1) Congestive cardiomyopathy: Status: Acute (2) Aspiration pneumonitis: Status: Acute (3) Acute and chronic respiratory failure with hypoxia: Status: Acute (4) Acute hypercapnic respiratory failure: Status: Acute (5) Hypercarbia: Status: Acute (6) Hypernatremia: Status: Acute (7) Toxic metabolic encephalopathy: Status: Acute (8) UTI (urinary tract infection): Status: Acute (9) Hypophosphatemia: Status: Acute Plan Chest x-ray shows that the ET tube and well above the leatha both size of his chest both well inflated no barotrauma issues no effusions no evidence of of wheezing just somewhat dyssynchronous Zamzam because he is awakening through the sedation and we will enhanced sedation with p.r.n. use of Ativan and I will recheck bedside echo to see if there is IVC distension and measure CVP because of the markedly positive intake to output ratio Blood work indicating improved slight improvement in his renal function so fortunately no ATN Quality Stroke Does the patient have a stroke diagnosis?: No VTE Prior VTE?: No VTE Risk Level:: Medical - moderate - high VTE Device Contraindication: N/A - Device Ordered VTE Drug Contraindication: N/A - Med Ordered
[2021-10-16] MEDS: LORazepam 2 MG/ML VIAL IVPUSH (12:31)
[2021-10-16] MEDS: propofoL 1,000 MG/100 ML VIAL 15.12 MG IVCONT ×2 (14:28→19:27)
[2021-10-16] MEDS: cefTRIAXone sodium 1 GM in 0.9 % Sodium Chloride 50 ML IV (16:12)
--- NOTE | 2021-10-16 18:48 | PC.NURSE ---
SEDATION VACATION STARTED AT 0938 AND ENDED AT 1038. PATIENT ABLE TO FOLLOW COMMANDS, OPEN EYES AND TRACK. VENT SETTINGS CHANGED TO PS AND PATIENT IMMEDIATELY BEGAN TO DESAT, MANUALLY BAGGED BY RT. PER MD PLACE PATIENT BACK ON AC SETTINGS AND WILL ATTEMPT SEDATION VACATION AGAIN TOMORROW. FAMILY UPDATED BY THIS RN THROUGHOUT THE SHIFT.
[2021-10-16] MEDS: Furosemide 20 MG/2 ML VIAL IVPUSH (23:48)
[2021-10-17] VITALS (36 sets, daily range): BP systolic 87–137; BP diastolic 37–63; PULSE 61–89; RESP 12–20; TEMP 34.8–36.8; O2SAT 93–98
[2021-10-17] MEDS: 0.9 % Sodium Chloride Flush 3 ML SYRINGE IVFLUSH ×4 (00:03→22:47)
[2021-10-17] MEDS: propofoL 1,000 MG/100 ML VIAL 12.96 MG IVCONT ×2 (01:22→05:33)
[2021-10-17 04:07] LABS: VBG Base Excess 5.3 mmol/L; VBG HCO3 28 mmol/L (22-26); VBG pCO2 34 mmHg; VBG pH 7.51 (7.32-7.43); VBG pO2 52 mmHg
[2021-10-17 04:15] LABS: MANUAL DIFF FLAG NO
[2021-10-17 04:18] LABS: Basophils Percent Auto 0.3 % (0-2); Eosinophils Absolute Auto 0.5 X10*3/uL (0.0-0.4); Eosinophils Percent Auto 3.3 % (0-4); Hematocrit 32.6 % (42.0-52.0); Hemoglobin 10.5 g/dl (14.0-18.0); Imm Gran Abs Auto 0.21 X10*3/uL (0.00-0.03); Imm Gran Pct Auto 1.4 % (0.0-0.4); Lymphocytes Absolute Auto 0.9 X10*3/uL (1.2-4.9); Lymphocytes Percent Auto 5.5 % (20-40); Mean Corpuscular HGB Conc 32.2 g/dl (31.0-36.0); Mean Corpuscular Hemoglobin 31.3 pg (27.0-33.0); Mean Platelet Volume 10.4 fL (9.4-12.4); Monocytes Absolute Auto 1.5 X10*3/uL (0.1-1.2); Monocytes Percent Auto 9.5 % (2-11); NRBC Pct Auto 0.1 /100WBC (0.0-0.2); Neutrophils Absolute Auto 12.4 x10*3/uL (2.0-8.3); Platelet Count 245 X10*3/uL (160-400); Red Blood Count 3.36 X10*6/uL (4.60-5.80); White Blood Count 15.5 X10*3/uL (4.8-10.8)
[2021-10-17 04:26] LABS: Venous Blood Gas Refer to POC result
[2021-10-17 04:38] LABS: Anion Gap 11 (12-20); Blood Urea Nitrogen 27 mg/dL (9-16); Calcium 8.1 mg/dL (8.4-10.2); Carbon Dioxide 29 mmol/L (22-29); Chloride 103 mmol/L (96-108); Creatinine Clr Calc Pharmacy 56.7; Estimated Glomerular Filt Rate > 60; Glucose Random 154 mg/dL (60-115); Magnesium 1.7 mg/dL (1.6-2.6); Phosphorus 2.8 mg/dL (2.7-4.5); Potassium 4.2 mmol/L (3.3-5.1); Sodium 139 mmol/L (135-145)
[2021-10-17] MEDS: Heparin Sodium,Porcine 5,000 UNIT/ML VIAL 5000 UNIT SUBCUT ×2 (05:33→16:37)
[2021-10-17] MEDS: Clindamycin Phosphate/D5W 600 MG/50 ML PIGGYBACK 100 MG IV ×3 (05:33→22:47)
[2021-10-17] MEDS: Pantoprazole Sodium 40 MG/10 ML VIAL IVPUSH (05:33)
[2021-10-17] MEDS: Latanoprost 0.005 % Ophth Sol 2.5 ML DROPS 1 DROP EYE-LEFT ×3 (07:53→21:34)
[2021-10-17] MEDS: Chlorhexidine Gluc Oral Rinse 15 ML MOUTHWASH BUCCAL ×3 (09:20→22:47)
[2021-10-17] MEDS: Amiodarone HCL 200 MG TABLET 100 MG PO (09:20)
--- NOTE | 2021-10-17 11:45 | P.PNCC_ITS ---
Subjective Subjective Date of Service: 10/17/21 Interval History: 85-year-old male presents with altered mental status requiring intubation because of acute on chronic hypercarbic and hypoxic respiratory failure of course completely corrected on the ventilator but on sedation holiday still did not have good cognitive function so he was been Re sedated he also promptly failed pressure support trial he has a known underlying congestive cardiomyopathy who had been on Entresto my gauged ejection fraction 45-50% By CT scan and by history it sounds like he is probably chronically aspirating has bibasilar pneumonia and as a result but with some bronchiectatic features as well and currently taking ceftriaxone and clindamycin and to cover AP partially resistant E coli in the urine Critical Care Time (minutes): 45 Physical Exam Vital Signs: Vital Signs: Last Vital Signs Temp 97.8 F 10/17/21 08:00 Pulse 64 10/17/21 11:00 Resp 13 10/17/21 11:00 BP 111/44 L 10/17/21 11:00 Pulse Ox 98 10/17/21 11:00 O2 Del Method 10/17/21 11:00 O2 Flow Rate 2 10/14/21 23:37 FiO2 35 10/17/21 11:34 BMI result Body Mass Index 21.5 Bedside echo with 45-50% ejection fraction Bibasilar rales but no accessory muscle use and FiO2 weaned to 35% Abdomen soft tolerating feedings no organomegaly Skin intact Objective Data Labs CBC & Chem 7: 10/17/21 04:01 10/17/21 04:01 Labs: Laboratory Results - last 24 hr 10/17/21 10/17/21 10/17/21 04:01 04:01 04:02 WBC 15.5 H RBC 3.36 L Hgb 10.5 L Hct 32.6 L MCV 97.0 MCH 31.3 MCHC 32.2 RDW 14.0 Plt Count 245 MPV 10.4 Immature Gran % (Auto) 1.4 H Neut % (Auto) 80.0 H Lymph % (Auto) 5.5 L [place] % (Auto) 9.5 Eos % (Auto) 3.3 Baso % (Auto) 0.3 Lymph # (Auto) 0.9 L [place] # (Auto) 1.5 H Eos # (Auto) 0.5 H Baso # (Auto) 0.0 Abs Immat Gran (auto) 0.21 H Absolute Neuts (auto) 12.4 H Absolute Nucleated RBC 0.020 H Nucleated RBC % (auto) 0.1 VBG pH 7.51 H VBG pCO2 34 VBG pO2 52 VBG HCO3 28 H VBG O2 Saturation 85.0 VBG Base Excess 5.3 Sodium 139 Potassium 4.2 Chloride 103 Carbon Dioxide 29 Anion Gap 11 L BUN 27 H Creatinine 0.97 Estim Creat Clear Calc 56.7 Estimated GFR > 60 Random Glucose 154 H Calcium 8.1 L D Phosphorus 2.8 Magnesium 1.7 Microbiology Microbiology Results: Microbiology 10/15/21 12:00 Sputum - Induced Gram Stain - Final 10/15/21 12:00 Sputum - Induced Sputum Culture - Final 10/12/21 13:05 Blood - Venous Blood Culture - Preliminary No growth after 48 hours. 10/12/21 12:35 Blood - Venous Blood Culture - Preliminary No growth after 48 hours. 10/12/21 14:39 Urine clean catch - Clean Catch Midstream Urine Culture - Final Escherichia coli Progress Note: A&P Assessment and plan (1) Hypophosphatemia: Status: Acute (2) Congestive cardiomyopathy: Status: Acute (3) Aspiration pneumonitis: Status: Acute (4) Acute and chronic respiratory failure with hypoxia: Status: Acute (5) Acute hypercapnic respiratory failure: Status: Acute (6) Hypercarbia: Status: Acute (7) Hypernatremia: Status: Acute (8) Toxic metabolic encephalopathy: Status: Acute (9) UTI (urinary tract infection): Status: Acute Plan So the plan is at a today on sedation keep him intubated same antibiotics follow CVP which jesenia to 8 but responded to shutting off his fluids Quality Stroke Does the patient have a stroke diagnosis?: No VTE Prior VTE?: No VTE Risk Level:: Medical - moderate - high VTE Device Contraindication: N/A - Device Ordered VTE Drug Contraindication: N/A - Med Ordered
--- NOTE | 2021-10-17 12:14 | MHC.CM.PN ---
Pt continues in ICU on ventilatory support: pt failed attempts to wean on 10/16: MD to revisit today: Pt will eventually d/c to SNF once medically stable: referrals placed. CM to follow
[2021-10-17] MEDS: cefTRIAXone sodium 1 GM in 0.9 % Sodium Chloride 50 ML IV (16:38)
[2021-10-17] MEDS: propofoL 1,000 MG/100 ML VIAL 8.64 MG IVCONT (20:20)
[2021-10-18] VITALS (33 sets, daily range): BP systolic 87–142; BP diastolic 37–68; PULSE 63–110; RESP 12–18; TEMP 34.8–37.9; O2SAT 90–98
[2021-10-18] MEDS: propofoL 1,000 MG/100 ML VIAL 8.64 MG IVCONT (02:16)
[2021-10-18] MEDS: Clindamycin Phosphate/D5W 600 MG/50 ML PIGGYBACK 100 MG IV ×3 (05:38→21:35)
[2021-10-18] MEDS: Pantoprazole Sodium 40 MG/10 ML VIAL IVPUSH (05:39)
[2021-10-18 05:40] LABS: MANUAL DIFF FLAG NO
[2021-10-18] MEDS: Heparin Sodium,Porcine 5,000 UNIT/ML VIAL 5000 UNIT SUBCUT ×2 (05:41→17:48)
[2021-10-18 05:44] LABS: Basophils Percent Auto 0.3 % (0-2); Eosinophils Absolute Auto 0.5 X10*3/uL (0.0-0.4); Eosinophils Percent Auto 4.5 % (0-4); Hematocrit 29.2 % (42.0-52.0); Hemoglobin 9.3 g/dl (14.0-18.0); Imm Gran Abs Auto 0.35 X10*3/uL (0.00-0.03); Imm Gran Pct Auto 3.2 % (0.0-0.4); Lymphocytes Absolute Auto 1.1 X10*3/uL (1.2-4.9); Lymphocytes Percent Auto 10.3 % (20-40); Mean Corpuscular HGB Conc 31.8 g/dl (31.0-36.0); Mean Corpuscular Volume 97.3 fL (80.0-98.0); Mean Platelet Volume 9.8 fL (9.4-12.4); Monocytes Absolute Auto 1.1 X10*3/uL (0.1-1.2); Monocytes Percent Auto 10.1 % (2-11); NRBC Pct Auto 0.2 /100WBC (0.0-0.2); Neutrophils Absolute Auto 7.8 x10*3/uL (2.0-8.3); Neutrophils Percent Auto 71.6 % (45-73); Platelet Count 204 X10*3/uL (160-400); Red Cell Distribution Width 14.2 % (11.0-16.0); White Blood Count 10.9 X10*3/uL (4.8-10.8)
[2021-10-18 05:48] LABS: VBG Base Excess 4.1 mmol/L; VBG HCO3 27 mmol/L (22-26); VBG pCO2 36 mmHg; VBG pH 7.48 (7.32-7.43); VBG pO2 48 mmHg
[2021-10-18 05:53] LABS: Venous Blood Gas Refer to POC result
[2021-10-18 06:03] LABS: Anion Gap 10 (12-20); Blood Urea Nitrogen 22 mg/dL (9-16); Calcium 7.8 mg/dL (8.4-10.2); Carbon Dioxide 29 mmol/L (22-29); Chloride 103 mmol/L (96-108); Creatinine Clr Calc Pharmacy 63.9; Estimated Glomerular Filt Rate > 60; Glucose Random 127 mg/dL (60-115); Magnesium 1.8 mg/dL (1.6-2.6); Phosphorus 2.5 mg/dL (2.7-4.5); Potassium 4.3 mmol/L (3.3-5.1); Sodium 138 mmol/L (135-145)
[2021-10-18] MEDS: Latanoprost 0.005 % Ophth Sol 2.5 ML DROPS 1 DROP EYE-LEFT ×3 (08:16→21:02)
[2021-10-18] MEDS: Amiodarone HCL 200 MG TABLET 100 MG PO (09:14)
[2021-10-18] MEDS: Chlorhexidine Gluc Oral Rinse 15 ML MOUTHWASH BUCCAL ×3 (09:14→21:01)
--- NOTE | 2021-10-18 13:18 | MHC.CLN ---
F/U PT REMAINS INTUBATED AND SEDATED PT RECEIVING JEVITY 1.0 AT MAX GOAL RATE 75ML/HR WITH 240ML FREE WATER FLUSHES Q SHIFT PROVIDES 1908KCALS (2136KCALS WITH SEDATION; 29.7KCALS/KG), 80G PROTEIN (1.1G/KG), 2313ML TOTAL WATER FROM FORMULA AND FLUSHES (32ML/KG) TOLERATING TF WELL WITH LOW RESIDUALS CONTINUE TO MONITOR TOLERANCE, RESIDUALS AND LYTES
--- NOTE | 2021-10-18 15:31 | P.PNCC_ITS ---
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 presents with acute on chronic hypercarbic respiratory failure and found unresponsive and on that basis now much improved after after intubation and on today's sedation holiday he woke up up with appropriate cognitive function following commands but still lethargic and on pressure support all day he did beautifully until the last hour at at pressure level of 10/5 he dropped his tidal volumes and became increasingly lethargic so based upon this we decided we will going to hold off until the morning use dexmedetomidine as sedation if need be and although he had been off for hours from his Levophed pressure just fell with a CVP of 2 we are giving him IV fluids continuing his oral feedings and replacing the Levophed until such time as his volume allows us to wean the Levophed and will rest him on pressure control overnight and then resume the attempt to extubate in the morning Critical Care Time (minutes): 60 Physical Exam Vital Signs: Vital Signs: Last Vital Signs Temp 98.8 F 10/18/21 12:00 Pulse 95 10/18/21 15:00 Resp 16 10/18/21 15:00 BP 105/50 L 10/18/21 15:00 Pulse Ox 94 10/18/21 15:00 O2 Del Method 10/18/21 15:00 O2 Flow Rate 2 10/14/21 23:37 FiO2 35 10/18/21 15:00 BMI result Body Mass Index 21.5 Bedside echo with preserved LV function and hypotension is now repairing slowly at 5087/37 with a mean of 56 and were presently giving him fluid and titrating Levophed Abdomen soft tolerating feedings no organomegaly Lungs without adventitious sounds Skin is intact Objective Data Labs CBC & Chem 7: 10/18/21 05:35 10/18/21 05:35 Labs: Laboratory Results - last 24 hr 10/18/21 10/18/21 10/18/21 05:35 05:35 05:43 WBC 10.9 H RBC 3.00 L Hgb 9.3 L Hct 29.2 L MCV 97.3 MCH 31.0 MCHC 31.8 RDW 14.2 Plt Count 204 MPV 9.8 Immature Gran % (Auto) 3.2 H Neut % (Auto) 71.6 Lymph % (Auto) 10.3 L [place] % (Auto) 10.1 Eos % (Auto) 4.5 H Baso % (Auto) 0.3 Lymph # (Auto) 1.1 L [place] # (Auto) 1.1 Eos # (Auto) 0.5 H Baso # (Auto) 0.0 Abs Immat Gran (auto) 0.35 H Absolute Neuts (auto) 7.8 Absolute Nucleated RBC 0.020 H Nucleated RBC % (auto) 0.2 VBG pH 7.48 H VBG pCO2 36 VBG pO2 48 VBG HCO3 27 H VBG O2 Saturation 81.0 VBG Base Excess 4.1 Sodium 138 Potassium 4.3 Chloride 103 Carbon Dioxide 29 Anion Gap 10 L BUN 22 H Creatinine 0.86 Estim Creat Clear Calc 63.9 Estimated GFR > 60 Random Glucose 127 H Calcium 7.8 L Phosphorus 2.5 L Magnesium 1.8 Microbiology Microbiology Results: Microbiology 10/12/21 13:05 Blood - Venous Blood Culture - Final No growth after 5 days. 10/12/21 12:35 Blood - Venous Blood Culture - Final No growth after 5 days. 10/15/21 12:00 Sputum - Induced Gram Stain - Final 10/15/21 12:00 Sputum - Induced Sputum Culture - Final 10/12/21 14:39 Urine clean catch - Clean Catch Midstream Urine Culture - Final Escherichia coli Progress Note: A&P Assessment and plan (1) Hypophosphatemia: Status: Acute (2) Congestive cardiomyopathy: Status: Acute (3) Aspiration pneumonitis: Status: Acute (4) Acute and chronic respiratory failure with hypoxia: Status: Acute (5) Acute hypercapnic respiratory failure: Status: Acute (6) Hypercarbia: Status: Acute (7) Hypernatremia: Status: Acute (8) Toxic metabolic encephalopathy: Status: Acute (9) UTI (urinary tract infection): Status: Acute Plan Very close to extubation but tidal volumes were diminishing as he became more lethargic without providing increased effort so we will concerned because the family wishes that he not be Re intubated so we will rest overnight on pressure control restore the Levophed keep his systolic pressure greater than 100 supplement with IV fluids for low CVP and then re-attempt in the morning to wean Quality Stroke Does the patient have a stroke diagnosis?: No VTE Prior VTE?: No VTE Risk Level:: Medical - moderate - high VTE Device Contraindication: N/A - Device Ordered VTE Drug Contraindication: N/A - Med Ordered
[2021-10-18] MEDS: Lactated Ringers 1,000 ML 100 ML IVCONT (15:33)
[2021-10-18] MEDS: LORazepam 2 MG/ML VIAL 1 MG IVPUSH ×2 (15:59→20:08)
[2021-10-18] MEDS: cefTRIAXone sodium 1 GM in 0.9 % Sodium Chloride 50 ML IV (17:48)
[2021-10-18] MEDS: 0.9 % Sodium Chloride Flush 3 ML SYRINGE IVFLUSH (23:56)
[2021-10-19] VITALS (33 sets, daily range): BP systolic 87–146; BP diastolic 34–68; PULSE 55–102; RESP 12–23; TEMP 34–38.1; O2SAT 90–98
[2021-10-19] MEDS: Lactated Ringers 1,000 ML 100 ML IVCONT (01:40)
[2021-10-19] MEDS: LORazepam 2 MG/ML VIAL 1 MG IVPUSH ×2 (01:46→10:03)
[2021-10-19] MEDS: Erythromycin Base 0.5% Oph Oin 1 GM TUBE 1 CM EYE-LEFT ×5 (01:52→20:26)
[2021-10-19] MEDS: fentaNYL citrate/PF 100 MCG/2 ML VIAL 50 MCG IVPUSH (02:11)
[2021-10-19 05:10] LABS: VBG Base Excess 4.9 mmol/L; VBG HCO3 27 mmol/L (22-26); VBG pCO2 34 mmHg; VBG pH 7.51 (7.32-7.43); VBG pO2 44 mmHg
[2021-10-19 05:16] LABS: MANUAL DIFF FLAG NO
[2021-10-19 05:18] LABS: Basophils Percent Auto 0.3 % (0-2); Eosinophils Absolute Auto 0.3 X10*3/uL (0.0-0.4); Eosinophils Percent Auto 2.7 % (0-4); Hemoglobin 8.7 g/dl (14.0-18.0); Imm Gran Abs Auto 0.27 X10*3/uL (0.00-0.03); Imm Gran Pct Auto 2.1 % (0.0-0.4); Lymphocytes Absolute Auto 1.2 X10*3/uL (1.2-4.9); Lymphocytes Percent Auto 9.5 % (20-40); Mean Corpuscular HGB Conc 32.2 g/dl (31.0-36.0); Mean Corpuscular Hemoglobin 31.9 pg (27.0-33.0); Mean Corpuscular Volume 98.9 fL (80.0-98.0); Mean Platelet Volume 10.3 fL (9.4-12.4); Monocytes Absolute Auto 1.3 X10*3/uL (0.1-1.2); Monocytes Percent Auto 10.2 % (2-11); Neutrophils Absolute Auto 9.6 x10*3/uL (2.0-8.3); Neutrophils Percent Auto 75.2 % (45-73); Platelet Count 208 X10*3/uL (160-400); Red Blood Count 2.73 X10*6/uL (4.60-5.80); Red Cell Distribution Width 14.1 % (11.0-16.0); White Blood Count 12.8 X10*3/uL (4.8-10.8)
[2021-10-19 05:22] LABS: Venous Blood Gas Refer to POC result
[2021-10-19] MEDS: vancomycin HCL 1,000 MG in 0.9 % Sodium Chloride 250 ML 270 MG IV (05:28)
[2021-10-19 05:37] LABS: Anion Gap 9 (12-20); Blood Urea Nitrogen 21 mg/dL (9-16); Calcium 7.8 mg/dL (8.4-10.2); Carbon Dioxide 28 mmol/L (22-29); Chloride 105 mmol/L (96-108); Creatinine Clr Calc Pharmacy 65.4; Estimated Glomerular Filt Rate > 60; Glucose Random 139 mg/dL (60-115); Magnesium 1.8 mg/dL (1.6-2.6); Phosphorus 2.4 mg/dL (2.7-4.5); Potassium 4.2 mmol/L (3.3-5.1); Sodium 138 mmol/L (135-145)
[2021-10-19] MEDS: Heparin Sodium,Porcine 5,000 UNIT/ML VIAL 5000 UNIT SUBCUT ×2 (06:14→15:39)
[2021-10-19] MEDS: Clindamycin Phosphate/D5W 600 MG/50 ML PIGGYBACK 100 MG IV ×3 (06:15→21:43)
[2021-10-19] MEDS: Pantoprazole Sodium 40 MG/10 ML VIAL IVPUSH (06:46)
[2021-10-19] MEDS: Amiodarone HCL 200 MG TABLET 100 MG PO (08:16)
[2021-10-19] MEDS: 0.9 % Sodium Chloride Flush 3 ML SYRINGE IVFLUSH (08:16)
[2021-10-19] MEDS: Latanoprost 0.005 % Ophth Sol 2.5 ML DROPS 1 DROP EYE-LEFT ×3 (08:16→20:26)
--- NOTE | 2021-10-19 08:54 | PM.CCPN ---
Subjective Subjective Date of Service: 10/19/21 Interval History: An 85-year-old male found unresponsive in his room with acute on chronic primarily hypercarbic but also hypoxic respiratory failure requiring intubation with a picture of aspiration and a probable history of dysphagia and aspiration responding well to antibiotics and nearly extubated yesterday because off sedation he finally had good cognitive function spent all day on pressure support but the last 2 hours at a pressure level of 10/5 his volumes began to deteriorate and then ultimately so to his degree of hypoxia requiring increase in FiO2 and we rested him overnight on pressure control at 15/5 with volumes in excess of 500-550 cc still only a minute ventilatory requirement of 7.5 L but 8 FiO2 is 45% as opposed to 35% yesterday with oxygen saturation 94 and now his CVP which had previously been it at the 0-2 is now up to approximately 8 so IV fluids were shut off and pressure now up to 150 so we are going to wean his Levophed and allow him to awaken place him on pressure support of 10/5 and observe at this level of CVP he might even need a little gentle diuresis but we will concerned because of the degree of sputum output as well as low-grade temperature and the hypoxia that he be in a might be developing a in a secondary nosocomial infection so we empirically covered last night and we wait for results of not just sputum culture but were getting a CT scan of his chest as well Critical Care Time (minutes): 60 Physical Exam Vital Signs: Vital Signs: Last Vital Signs Temp 99.0 F 10/19/21 07:56 Pulse 78 10/19/21 08:16 Resp 18 10/19/21 07:56 BP 121/37 L 10/19/21 08:16 Pulse Ox 95 10/19/21 07:56 O2 Del Method 10/19/21 07:56 O2 Flow Rate 2 10/14/21 23:37 FiO2 50 10/19/21 07:56 BMI result Body Mass Index 21.5 Vitals are excellent and bedside cardiac exam shows stable cardiomyopathy with adequate bilateral carotid upstrokes but CVP definitely higher at 8 may be indicating some increased intrathoracic volume so fluids were shut off Abdomen benign no organomegaly tolerating feedings Chest without accessory muscle or diaphragm effort Skin intact Objective Data Labs CBC & Chem 7: 10/19/21 04:52 10/19/21 04:52 Labs: Laboratory Results - last 24 hr 10/19/21 10/19/21 10/19/21 04:52 04:52 05:06 WBC 12.8 H RBC 2.73 L Hgb 8.7 L Hct 27.0 L MCV 98.9 H MCH 31.9 MCHC 32.2 RDW 14.1 Plt Count 208 MPV 10.3 Immature Gran % (Auto) 2.1 H Neut % (Auto) 75.2 H Lymph % (Auto) 9.5 L [place] % (Auto) 10.2 Eos % (Auto) 2.7 Baso % (Auto) 0.3 Lymph # (Auto) 1.2 [place] # (Auto) 1.3 H Eos # (Auto) 0.3 Baso # (Auto) 0.0 Abs Immat Gran (auto) 0.27 H Absolute Neuts (auto) 9.6 H Absolute Nucleated RBC 0.000 Nucleated RBC % (auto) 0.0 VBG pH 7.51 H VBG pCO2 34 VBG pO2 44 VBG HCO3 27 H VBG O2 Saturation 76.0 VBG Base Excess 4.9 Sodium 138 Potassium 4.2 Chloride 105 Carbon Dioxide 28 Anion Gap 9 L BUN 21 H Creatinine 0.84 Estim Creat Clear Calc 65.4 Estimated GFR > 60 Random Glucose 139 H Calcium 7.8 L Phosphorus 2.4 L Magnesium 1.8 Microbiology Microbiology Results: Microbiology 10/12/21 13:05 Blood - Venous Blood Culture - Final No growth after 5 days. 10/12/21 12:35 Blood - Venous Blood Culture - Final No growth after 5 days. 10/15/21 12:00 Sputum - Induced Gram Stain - Final 10/15/21 12:00 Sputum - Induced Sputum Culture - Final 10/12/21 14:39 Urine clean catch - Clean Catch Midstream Urine Culture - Final Escherichia coli Progress Note: A&P Assessment and plan (1) Hypophosphatemia: Status: Acute (2) Congestive cardiomyopathy: Status: Acute (3) Aspiration pneumonitis: Status: Acute (4) Acute and chronic respiratory failure with hypoxia: Status: Acute (5) Acute hypercapnic respiratory failure: Status: Acute (6) Hypercarbia: Status: Acute (7) Hypernatremia: Status: Acute (8) Toxic metabolic encephalopathy: Status: Acute (9) UTI (urinary tract infection): Status: Acute Plan Plan is stopping fluids diurese as necessary acute continue pressor support but wean given his good blood pressure try to wean his FiO2 and place on pressor pressure support now to assess for capability for extubation Quality Stroke Does the patient have a stroke diagnosis?: No VTE Prior VTE?: No VTE Risk Level:: Medical - moderate - high VTE Device Contraindication: N/A - Device Ordered VTE Drug Contraindication: N/A - Med Ordered
[2021-10-19] MEDS: Chlorhexidine Gluc Oral Rinse 15 ML MOUTHWASH BUCCAL ×3 (10:03→20:26)
[2021-10-19] MEDS: Lactated Ringers 1,000 ML 10 ML IVCONT (12:18)
[2021-10-19] MEDS: Piperacillin Sodium/Tazobactam 4.5 GM in 0.9 % Sodium Chloride 100 ML IV ×3 (15:22→23:38)
[2021-10-19] MEDS: Acetylcysteine 10 % 400 MG/4 ML VIAL INHALE ×2 (15:27→20:46)
[2021-10-19] MEDS: Albuterol/Iprat 2.5/0.5MG 3 ML AMPUL.NEB INHALE ×2 (15:28→20:46)
[2021-10-19] MEDS: propofoL 1,000 MG/100 ML VIAL 8.64 MG IVCONT (21:22)
--- NOTE | 2021-10-19 22:57 | P.CONPL_ITS ---
History of Present Illness History of Present Illness Consult date: 10/19/21 Chief complaint: Toxic metabolic encephalopathy Narrative: This is an inpatient pulmonary consultation. The patient is an 85-year-old male apparently with E coli urinary tract infection on ceftriaxone found unresponsive with acute on chronic hypercarbic and hypoxic respiratory failure clearly requiring intubation. The initial chest CT scan does show bibasilar infiltrates and/or atelectasis. The patient has continue to require mechanical ventilation. CXR was worse and underwent a repeat ct chest personally reviewed by me demonstrating worsening LLL consolidation along with atelectasis and likely a small effusion. He was then placed on Meropenem and vanco, now on zosyn. Review of Systems Review of Systems: Yes unobtainable due to endotracheal tube and Unobtainable due to mental status PMFSH Past Medical History Medical History (Updated 10/19/21 @ 23:10 by Johnathan Alvarado MD) Bifascicular bundle branch block Chronic hypercapnic respiratory failure Dilated cardiomyopathy History of TIA (transient ischemic attack) HTN (hypertension) Orthostatic hypotension Systolic CHF Family History Family History Other Guillain Rainey? syndrome Social History Social History Household Members: Spouse Housing: Other Housing Other:: lives at [facility] Do you presently have visiting nurse or other home services: No Alcohol intake: former Patient Tobacco Use Status: Former Tobacco user Second Hand Smoke Exposure: No Advance Directives Date on File: 10/13/21 service: Yes Current occupational status: retired Meds Allergies Allergy/AdvReac Type Severity Reaction Status Date / Time No Known Allergies Allergy Verified 10/12/21 11:14 Active Medications: Current Medications Acetylcysteine (Acetylcysteine 10 % 400 Mg/4 Ml Vial) 400 mg INHALE RQ4H WHILE AWAKE [facility] Last Admin: 10/19/21 20:46 Dose: 400 mg Albuterol/Ipratropium (Albuterol/Iprat 2.5/0.5mg 3 Ml Ampul.Neb) 3 ml INHALE RQ6H WHILE AWAKE [facility] Last Admin: 10/19/21 20:46 Dose: 3 ml Amiodarone HCl (Amiodarone Hcl 200 Mg Tablet) 100 mg PO DAILY [facility] Last Admin: 10/19/21 08:16 Dose: 100 mg Atropine Sulfate (Atropine Sulfate 1 Mg/10 Ml Syringe) 0.5 mg IVPUSH ONCE PRN PRN Reason: hr<45 Bisacodyl (Bisacodyl 10 Mg Supp.Rect) 10 mg KS DAILY PRN PRN Reason: Constipation Chlorhexidine Gluconate (Chlorhexidine Gluc Oral Rinse 15 Ml Mouthwash) 15 ml BUCCAL TID [facility] Last Admin: 10/19/21 20:26 Dose: 15 ml Erythromycin (Erythromycin Base 0.5% Oph Oin 1 Gm Tube) 1 cm EYE-LEFT QID GIRISH Last Admin: 10/19/21 20:26 Dose: 1 cm Fentanyl (Fentanyl Citrate/Pf 100 Mcg/2 Ml Vial) 50 mcg IVPUSH Q2H PRN; Protocol PRN Reason: work of breathing Last Admin: 10/19/21 02:11 Dose: 50 mcg Heparin Sodium (Porcine) (Heparin Sodium,Porcine 5,000 Unit/Ml Vial) 5,000 unit SUBCUT Q12H [facility] Last Admin: 10/19/21 15:39 Dose: 5,000 unit Norepinephrine Bitartrate (Levophed) 8 mg in 250 mls @ 0 mls/hr IVCONT .Q0M [facility]; Protocol Last Titration: 10/19/21 11:19 Dose: 0.05 mcg/kg/min, 6.75 mls/hr Clindamycin Phosphate (Cleocin) 600 mg in 50 mls @ 100 mls/hr IV Q8H [facility] Last Infusion: 10/19/21 22:40 Dose: Infused Lactated Ringer's (Lr) 1,000 mls @ 100 mls/hr IVCONT .Q10H [facility] Last Admin: 10/19/21 21:44 Dose: Not Given Piperacillin Sod/Tazobactam (Sod 4.5 gm/ Sodium Chloride) 100 mls @ 200 mls/hr IV Q6H [facility] Last Infusion: 10/19/21 19:54 Dose: Infused Propofol (Diprivan) 1,000 mg in 100 mls @ 0 mls/hr IVCONT .Q0M [facility]; Protocol Last Admin: 10/19/21 21:22 Dose: 20 mcg/kg/min, 8.64 mls/hr Latanoprost (Latanoprost 0.005 % Ophth Shruthi 2.5 Ml Drops) 1 drop EYE-LEFT TID@0800,1400,2000 [facility] Last Admin: 10/19/21 20:26 Dose: 1 drop Lorazepam (Lorazepam 2 Mg/Ml Vial) 1 mg IVPUSH Q4H PRN PRN Reason: Ventilator synchrony Last Admin: 10/19/21 10:03 Dose: 1 mg Magnesium Hydroxide (Milk Of Magnesia 30 Ml Oral.Susp) 30 ml PO DAILY PRN PRN Reason: Constipation Last Admin: 10/13/21 10:00 Dose: 30 ml Pantoprazole Sodium (Pantoprazole Sodium 40 Mg/10 Ml Vial) 40 mg IVPUSH DAILY@0630 [facility] Last Admin: 10/19/21 06:46 Dose: 40 mg Pharmacy Consult (Consult Rx Perform Med Rec) 1 each MISCELLANE ONCE PRN PRN Reason: Consult order Phenylephrine HCl (Phenylephrine Hcl 10 Mg/Ml Vial) 0.1 mg IVPUSH Q5M PRN PRN Reason: hypotension Last Admin: 10/15/21 06:12 Dose: 0.1 mg Sodium Biphosphate/Sodium Phosphate (Sodium Phosphate,[place]-Dibasic 133 Ml Enema) 118 ml KS DAILY PRN PRN Reason: Constipation Sodium Chloride (0.9 % Sodium Chloride Flush 3 Ml Syringe) 3 ml IVFLUSH QSHIFT [facility] Last Admin: 10/19/21 16:30 Dose: Not Given Home Medications Medication Instructions Recorded Confirmed Last Taken Type acetaminophen 325 mg tablet 650 mg PO Q6H PRN Pain 10/12/21 10/12/21 Unknown History amiodarone 100 mg tablet 100 mg PO DAILY 10/12/21 10/12/21 10/11/21 History bisacodyl 10 mg rectal suppository 10 mg KS DAILY PRN Constipation 10/12/21 10/12/21 Unknown History fluticasone propionate 50 1 spray intranasal DAILY PRN 10/12/21 10/12/21 Unknown History mcg/actuation nasal Allergic Symptoms spray,suspension furosemide 20 mg tablet 60 mg PO DAILY 10/12/21 10/12/21 Unknown History latanoprost 0.005 % eye drops 1 drp ophthalmic-Left 10/12/21 10/12/21 Unknown History TID@0800,1400,2000 magnesium hydroxide 400 mg/5 mL 30 ml PO DAILY PRN Constipation 10/12/21 10/12/21 Unknown History oral suspension (Milk of Magnesia) sacubitril 24 mg-valsartan 26 mg 1 tab PO DAILY 10/12/21 10/12/21 Unknown History tablet (Entresto) sodium phosphates 19 gram-7 118 ml KS DAILY PRN Constipation 10/12/21 10/12/21 Unknown History gram/118 mL enema (Fleet Enema) Physical Exam Vital Signs: Vital Signs: Last Vital Signs Temp 99.6 F 10/19/21 20:40 Pulse 76 10/19/21 22:00 Resp 16 10/19/21 22:00 BP 116/42 L 10/19/21 22:00 Pulse Ox 94 10/19/21 22:00 O2 Del Method 10/19/21 22:00 O2 Flow Rate 2 10/14/21 23:37 FiO2 28 10/19/21 22:00 BMI result Body Mass Index 21.5 Const: General: ill appearing Neck: Neck: Yes supple Resp: Auscultation: diminished lung sounds Cardio: Rate: regular rate Heart sounds: S1 normal heart sound present and S2 normal heart sound present GI: Inspection: No distended Skin: General skin exam: no rashes or lesions noted Extrem: General: Yes clubbing and Yes cyanosis Results Laboratory Findings CBC and BMP: 10/19/21 04:52 10/19/21 04:52 ABG, PT/INR, D-dimer: PT/INR, D-dimer PT 11.5 SEC (9.9-13.0) 10/15/21 04:14 INR 1.0 (0.9-1.1) 10/15/21 04:14 Abnormal lab findings: Abnormal Labs 10/12/21 10/12/21 10/12/21 12:35 12:35 14:17 WBC RBC Hgb Hct MCV MCHC Immature Gran % (Auto) Neut % (Auto) Lymph % (Auto) Eos % (Auto) Lymph # (Auto) [place] # (Auto) Eos # (Auto) Abs Immat Gran (auto) Absolute Neuts (auto) Absolute Nucleated RBC ABG pH at Pt Temp ABG pCO2 at Pt Temp ABG pO2 at Pt Temp ABG HCO3 VBG pH VBG HCO3 Sodium 146 H Carbon Dioxide 35 H Anion Gap BUN 36 H Creatinine 1.64 H POC Glucose Random Glucose Calcium Phosphorus Troponin I High Sens 36.0 H B-Natriuretic Peptide 410 H Urine Protein 1+ H Urine Blood 1+ H Urine Nitrite POS H Ur Leukocyte Esterase 3+ H Urine WBC TNTC H 10/12/21 10/14/21 10/15/21 17:18 12:38 04:02 WBC RBC 3.80 L Hgb 11.9 L Hct 38.3 L MCV 100.8 H MCHC Immature Gran % (Auto) 0.6 H Neut % (Auto) 82.9 H Lymph % (Auto) 4.5 L Eos % (Auto) Lymph # (Auto) 0.5 L [place] # (Auto) Eos # (Auto) Abs Immat Gran (auto) 0.06 H Absolute Neuts (auto) 8.7 H Absolute Nucleated RBC ABG pH at Pt Temp ABG pCO2 at Pt Temp ABG pO2 at Pt Temp ABG HCO3 VBG pH VBG HCO3 Sodium 148 H Carbon Dioxide 33 H Anion Gap BUN 38 H Creatinine POC Glucose 174 H Random Glucose 167 H D Calcium Phosphorus Troponin I High Sens B-Natriuretic Peptide Urine Protein Urine Blood Urine Nitrite Ur Leukocyte Esterase Urine WBC 10/15/21 10/15/21 10/15/21 04:14 04:14 04:14 WBC 16.0 H RBC 4.17 L Hgb 13.0 L Hct MCV 104.6 H MCHC 29.8 L Immature Gran % (Auto) 0.6 H Neut % (Auto) 84.1 H Lymph % (Auto) 5.9 L Eos % (Auto) Lymph # (Auto) 0.9 L [place] # (Auto) 1.4 H Eos # (Auto) Abs Immat Gran (auto) 0.10 H Absolute Neuts (auto) 13.4 H Absolute Nucleated RBC 0.020 H ABG pH at Pt Temp 7.08 L* ABG pCO2 at Pt Temp 129 H* ABG pO2 at Pt Temp 335 H ABG HCO3 38 H VBG pH VBG HCO3 Sodium 149 H Carbon Dioxide 38 H Anion Gap 11 L BUN 41 H Creatinine 1.56 H POC Glucose Random Glucose 208 H Calcium Phosphorus Troponin I High Sens B-Natriuretic Peptide Urine Protein Urine Blood Urine Nitrite Ur Leukocyte Esterase Urine WBC 10/15/21 10/16/21 10/16/21 05:28 05:30 05:30 WBC 15.2 H RBC 3.43 L Hgb 10.8 L Hct 33.4 L D MCV MCHC Immature Gran % (Auto) 0.7 H Neut % (Auto) 78.5 H Lymph % (Auto) 9.3 L Eos % (Auto) Lymph # (Auto) [place] # (Auto) 1.3 H Eos # (Auto) Abs Immat Gran (auto) 0.10 H Absolute Neuts (auto) 11.9 H Absolute Nucleated RBC 0.030 H ABG pH at Pt Temp ABG pCO2 at Pt Temp ABG pO2 at Pt Temp ABG HCO3 VBG pH VBG HCO3 39 H Sodium Carbon Dioxide 31 H Anion Gap BUN 37 H Creatinine POC Glucose Random Glucose 181 H Calcium Phosphorus 1.1 L Troponin I High Sens B-Natriuretic Peptide Urine Protein Urine Blood Urine Nitrite Ur Leukocyte Esterase Urine WBC 10/16/21 10/17/21 10/17/21 05:31 04:01 04:01 WBC 15.5 H RBC 3.36 L Hgb 10.5 L Hct 32.6 L MCV MCHC Immature Gran % (Auto) 1.4 H Neut % (Auto) 80.0 H Lymph % (Auto) 5.5 L Eos % (Auto) Lymph # (Auto) 0.9 L [place] # (Auto) 1.5 H Eos # (Auto) 0.5 H Abs Immat Gran (auto) 0.21 H Absolute Neuts (auto) 12.4 H Absolute Nucleated RBC 0.020 H ABG pH at Pt Temp ABG pCO2 at Pt Temp ABG pO2 at Pt Temp ABG HCO3 VBG pH 7.54 H VBG HCO3 32 H Sodium Carbon Dioxide Anion Gap 11 L BUN 27 H Creatinine POC Glucose Random Glucose 154 H Calcium 8.1 L D Phosphorus Troponin I High Sens B-Natriuretic Peptide Urine Protein Urine Blood Urine Nitrite Ur Leukocyte Esterase Urine WBC 10/17/21 10/18/21 10/18/21 04:02 05:35 05:35 WBC 10.9 H RBC 3.00 L Hgb 9.3 L Hct 29.2 L MCV MCHC Immature Gran % (Auto) 3.2 H Neut % (Auto) Lymph % (Auto) 10.3 L Eos % (Auto) 4.5 H Lymph # (Auto) 1.1 L [place] # (Auto) Eos # (Auto) 0.5 H Abs Immat Gran (auto) 0.35 H Absolute Neuts (auto) Absolute Nucleated RBC 0.020 H ABG pH at Pt Temp ABG pCO2 at Pt Temp ABG pO2 at Pt Temp ABG HCO3 VBG pH 7.51 H VBG HCO3 28 H Sodium Carbon Dioxide Anion Gap 10 L BUN 22 H Creatinine POC Glucose Random Glucose 127 H Calcium 7.8 L Phosphorus 2.5 L Troponin I High Sens B-Natriuretic Peptide Urine Protein Urine Blood Urine Nitrite Ur Leukocyte Esterase Urine WBC 10/18/21 10/19/21 10/19/21 05:43 04:52 04:52 WBC 12.8 H RBC 2.73 L Hgb 8.7 L Hct 27.0 L MCV 98.9 H MCHC Immature Gran % (Auto) 2.1 H Neut % (Auto) 75.2 H Lymph % (Auto) 9.5 L Eos % (Auto) Lymph # (Auto) [place] # (Auto) 1.3 H Eos # (Auto) Abs Immat Gran (auto) 0.27 H Absolute Neuts (auto) 9.6 H Absolute Nucleated RBC ABG pH at Pt Temp ABG pCO2 at Pt Temp ABG pO2 at Pt Temp ABG HCO3 VBG pH 7.48 H VBG HCO3 27 H Sodium Carbon Dioxide Anion Gap 9 L BUN 21 H Creatinine POC Glucose Random Glucose 139 H Calcium 7.8 L Phosphorus 2.4 L Troponin I High Sens B-Natriuretic Peptide Urine Protein Urine Blood Urine Nitrite Ur Leukocyte Esterase Urine WBC 10/19/21 05:06 WBC RBC Hgb Hct MCV MCHC Immature Gran % (Auto) Neut % (Auto) Lymph % (Auto) Eos % (Auto) Lymph # (Auto) [place] # (Auto) Eos # (Auto) Abs Immat Gran (auto) Absolute Neuts (auto) Absolute Nucleated RBC ABG pH at Pt Temp ABG pCO2 at Pt Temp ABG pO2 at Pt Temp ABG HCO3 VBG pH 7.51 H VBG HCO3 27 H Sodium Carbon Dioxide Anion Gap BUN Creatinine POC Glucose Random Glucose Calcium Phosphorus Troponin I High Sens B-Natriuretic Peptide Urine Protein Urine Blood Urine Nitrite Ur Leukocyte Esterase Urine WBC Microbiology: Microbiology 10/19/21 04:50 Sputum - Suctioned Gram Stain - Final 10/12/21 13:05 Blood - Venous Blood Culture - Final No growth after 5 days. 10/12/21 12:35 Blood - Venous Blood Culture - Final No growth after 5 days. 10/15/21 12:00 Sputum - Induced Gram Stain - Final 10/15/21 12:00 Sputum - Induced Sputum Culture - Final 10/12/21 14:39 Urine clean catch - Clean Catch Midstream Urine Culture - Final Escherichia coli Assessment and Plan (1) Acute and chronic respiratory failure: Qualifiers: Respiratory failure complication: hypoxia and hypercapnia Qualified Code(s): J96.21 - Acute and chronic respiratory failure with hypoxia; J96.22 - Acute and chronic respiratory failure with hypercapnia Status: Acute (2) Pneumonia: Status: Acute (3) Atelectasis: Status: Acute (4) Pleural effusion: Status: Acute Plan The patient has a worsening consolidation of the LLL. He has definitive air- bronchograms which are consitent with pneumonia. He also has a component of mucus plugging suggesting some atectasis. Also appears to have a small pleural effusion. My suspicion is that is mostly a consolidated lung. This could be confirmed with chest U/S and visualizing the air-bronchograms. REC: Awaiting sputum cultures Agree with broadning antibiotics No need for bronchoscopy at this time repeat CXR in the AM Procedures Date of Service Date of Service: 10/19/21
[2021-10-20] VITALS (33 sets, daily range): BP systolic 97–135; BP diastolic 37–59; PULSE 59–100; RESP 13–32; TEMP 34.5–37.6; O2SAT 4–98
[2021-10-20 05:30] LABS: VBG Base Excess 5.2 mmol/L; VBG HCO3 28 mmol/L (22-26); VBG pCO2 37 mmHg; VBG pH 7.49 (7.32-7.43); VBG pO2 56 mmHg
[2021-10-20] MEDS: Pantoprazole Sodium 40 MG/10 ML VIAL IVPUSH (05:34)
[2021-10-20] MEDS: Heparin Sodium,Porcine 5,000 UNIT/ML VIAL 5000 UNIT SUBCUT ×2 (05:34→19:02)
[2021-10-20] MEDS: Clindamycin Phosphate/D5W 600 MG/50 ML PIGGYBACK 100 MG IV ×3 (05:35→21:07)
[2021-10-20] MEDS: Piperacillin Sodium/Tazobactam 4.5 GM in 0.9 % Sodium Chloride 100 ML IV ×4 (05:49→23:51)
[2021-10-20 05:54] LABS: Basophils Percent Auto 0.2 % (0-2); Eosinophils Absolute Auto 0.3 X10*3/uL (0.0-0.4); Eosinophils Percent Auto 1.9 % (0-4); Hematocrit 26.8 % (42.0-52.0); Hemoglobin 8.7 g/dl (14.0-18.0); Imm Gran Abs Auto 0.37 X10*3/uL (0.00-0.03); Imm Gran Pct Auto 2.4 % (0.0-0.4); Lymphocytes Absolute Auto 0.9 X10*3/uL (1.2-4.9); Lymphocytes Percent Auto 6.2 % (20-40); MANUAL DIFF FLAG SCAN; Mean Corpuscular HGB Conc 32.5 g/dl (31.0-36.0); Mean Corpuscular Hemoglobin 31.5 pg (27.0-33.0); Mean Corpuscular Volume 97.1 fL (80.0-98.0); Mean Platelet Volume 10.1 fL (9.4-12.4); Monocytes Absolute Auto 1.7 X10*3/uL (0.1-1.2); Neutrophils Percent Auto 78.3 % (45-73); Platelet Count 214 X10*3/uL (160-400); Red Blood Count 2.76 X10*6/uL (4.60-5.80); Red Cell Distribution Width 14.4 % (11.0-16.0); SCAN SMEAR FLAG 1; White Blood Count 15.3 X10*3/uL (4.8-10.8)
[2021-10-20 06:14] LABS: Anion Gap 11 (12-20); Blood Urea Nitrogen 22 mg/dL (9-16); Calcium 7.8 mg/dL (8.4-10.2); Carbon Dioxide 27 mmol/L (22-29); Chloride 107 mmol/L (96-108); Creatinine Clr Calc Pharmacy 56.1; Estimated Glomerular Filt Rate > 60; Glucose Random 185 mg/dL (60-115); Magnesium 1.9 mg/dL (1.6-2.6); Phosphorus 2.7 mg/dL (2.7-4.5); Potassium 4.5 mmol/L (3.3-5.1); Sodium 140 mmol/L (135-145)
[2021-10-20 06:31] LABS: SLIDE REVIEW VERIFIED
[2021-10-20 07:43] LABS: Venous Blood Gas Refer to POC result
[2021-10-20] MEDS: Albuterol/Iprat 2.5/0.5MG 3 ML AMPUL.NEB INHALE ×3 (07:50→20:26)
[2021-10-20] MEDS: Acetylcysteine 10 % 400 MG/4 ML VIAL INHALE (07:50)
[2021-10-20] MEDS: propofoL 1,000 MG/100 ML VIAL 8.64 MG IVCONT (08:45)
[2021-10-20] MEDS: Erythromycin Base 0.5% Oph Oin 1 GM TUBE 1 CM EYE-LEFT ×4 (08:47→20:41)
[2021-10-20] MEDS: Amiodarone HCL 200 MG TABLET 100 MG PO (08:47)
[2021-10-20] MEDS: Chlorhexidine Gluc Oral Rinse 15 ML MOUTHWASH BUCCAL ×3 (08:47→20:41)
[2021-10-20] MEDS: Lactated Ringers 1,000 ML 10 ML IVCONT (08:50)
[2021-10-20] MEDS: fentaNYL citrate/PF 100 MCG/2 ML VIAL 50 MCG IVPUSH (10:18)
[2021-10-20] MEDS: 0.9 % Sodium Chloride Flush 3 ML SYRINGE IVFLUSH ×3 (10:22→23:32)
[2021-10-20] MEDS: Latanoprost 0.005 % Ophth Sol 2.5 ML DROPS 1 DROP EYE-LEFT ×3 (10:22→20:41)
--- NOTE | 2021-10-20 10:26 | PC.NURSE ---
1020-Dr. Farfan performing bedside bronchoscopy. RT and RN at bedside. Pt premedicated with diprivan and 50mcg of Fentanyl. VSS, pt tolerating well.
--- NOTE | 2021-10-20 16:00 | P.PNCC_ITS ---
Subjective Subjective Date of Service: 10/20/21 Interval History: 85-year-old male slowly deteriorating at home having more frequent falls but also noted by family to be coughing and choking especially on thin liquids developed increasing weakness 1st of left upper extremity function mostly with the right which is now becoming weaker as are both his legs and presented with acute on chronic hypercarbic respiratory failure manifested by altered mental status requiring intubation we noted that he had bibasilar infiltrates consistent with aspiration picture with evidence of chronicity in terms of the appearance of the airways on his CT scan he has been intubated on antibiotics also covering any E coli urinary tract infection and I noticed the configuration of both hands with bilateral fasciculation and 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 and he developed left lower lobe atelectasis and did be bedside bronchoscopy today and actually suction a considerable amount of inspissated mucus with clinical re-expansion of that left lower lobe resulting in improvement in his oxygenation weaning his FiO2 to 35% and we have had him off the propofol awakening with good cognitive function and currently on a pressure level of 10/5 and if he can sustain his volume I will try to extubate but the family does indicate that there is to be no re-intubation By calculation he has chronic pCO2 levels in the mid 50s Bedside echo Arizmendi confirming that he does have a congestive cardiomyopathy but a.m. ejection fraction not bad at 45-50% with no primary valve or pericardial disease and on the in the outside he takes Entresto but here he has required at least mild pressor support with Levophed and we have CVP measurement currently at about 8 and he remains on Ringer's lactate as well as volume through feeding Critical Care Time (minutes): 60 Physical Exam Vital Signs: Vital Signs: Last Vital Signs Temp 98.4 F 10/20/21 12:00 Pulse 78 10/20/21 15:31 Resp 17 10/20/21 15:31 BP 123/48 L 10/20/21 15:02 Pulse Ox 94 10/20/21 15:02 O2 Del Method 10/20/21 15:02 O2 Flow Rate 2 10/14/21 23:37 FiO2 35 10/20/21 15:31 BMI result Body Mass Index 21.5 He is awakening and he is appropriate in understanding with family present Cardiac exam by bedside echo as described Chest x-ray with persistent bibasilar infiltrates but definite improvement in left lower lobe volume S shifting mediastinum back towards its midpoint Abdomen is soft with no organomegaly and tolerating feedings Objective Data Labs CBC & Chem 7: 10/20/21 05:10 10/20/21 05:10 Labs: Laboratory Results - last 24 hr 10/20/21 10/20/21 10/20/21 05:10 05:10 05:26 WBC 15.3 H RBC 2.76 L Hgb 8.7 L Hct 26.8 L MCV 97.1 MCH 31.5 MCHC 32.5 RDW 14.4 Plt Count 214 MPV 10.1 Immature Gran % (Auto) 2.4 H Neut % (Auto) 78.3 H Lymph % (Auto) 6.2 L [place] % (Auto) 11.0 Eos % (Auto) 1.9 Baso % (Auto) 0.2 Lymph # (Auto) 0.9 L [place] # (Auto) 1.7 H Eos # (Auto) 0.3 Baso # (Auto) 0.0 Abs Immat Gran (auto) 0.37 H Absolute Neuts (auto) 12.0 H Absolute Nucleated RBC 0.000 Nucleated RBC % (auto) 0.0 Smear Tech's Comments VERIFIED VBG pH 7.49 H VBG pCO2 37 VBG pO2 56 VBG HCO3 28 H VBG O2 Saturation 87.0 VBG Base Excess 5.2 Sodium 140 Potassium 4.5 Chloride 107 Carbon Dioxide 27 Anion Gap 11 L BUN 22 H Creatinine 0.98 Estim Creat Clear Calc 56.1 Estimated GFR > 60 Random Glucose 185 H Calcium 7.8 L Phosphorus 2.7 Magnesium 1.9 Microbiology Microbiology Results: Microbiology 10/19/21 04:50 Sputum - Suctioned Gram Stain - Final 10/19/21 04:50 Sputum - Suctioned Sputum Culture - Preliminary Culture in progress. 10/12/21 13:05 Blood - Venous Blood Culture - Final No growth after 5 days. 10/12/21 12:35 Blood - Venous Blood Culture - Final No growth after 5 days. 10/15/21 12:00 Sputum - Induced Gram Stain - Final 10/15/21 12:00 Sputum - Induced Sputum Culture - Final 10/12/21 14:39 Urine clean catch - Clean Catch Midstream Urine Culture - Final Escherichia coli Progress Note: A&P Assessment and plan (1) Pleural effusion: Status: Acute (2) Atelectasis: Status: Acute (3) Acute and chronic respiratory failure: Status: Acute (4) Pneumonia: Status: Acute (5) Hypophosphatemia: Status: Acute (6) Congestive cardiomyopathy: Status: Acute (7) Aspiration pneumonitis: Status: Acute (8) Acute and chronic respiratory failure with hypoxia: Status: Acute (9) Acute hypercapnic respiratory failure: Status: Acute (10) Hypercarbia: Status: Acute (11) Hypernatremia: Status: Acute (12) Toxic metabolic encephalopathy: Status: Acute (13) UTI (urinary tract infection): Status: Acute Plan So at this point 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 and probably that accounting for his chronic hypercapnic respiratory insufficiency and may before his dysphagia as well and we need to start with the push to extubation and probable support at best with now nasal high-flow because he will never consent the family said to CPAP and hopefully swallow eval will allow him dietary manipulation because he will also not consent to a PEG tube nor tracheostomy and should have a neuro consult and of course the EMG is necessary to complete this diagnosis but I have a completed note here from the daughters with the phone number for the [place] system where his medical records e xist most importantly from Neurology but they are not aware of any labile diagnosis just yet Quality Stroke Does the patient have a stroke diagnosis?: No VTE Prior VTE?: No VTE Risk Level:: Medical - moderate - high VTE Device Contraindication: N/A - Device Ordered VTE Drug Contraindication: N/A - Med Ordered
--- NOTE | 2021-10-20 16:10 | W.PM.CCHP ---
Procedures Date of Service Date of Service: 10/20/21 Bronchoscopy Bronchoscopy Comments: After consent was obtained from the daughter who is the healthcare proxy we performed bedside bronchoscopy while on the ventilator with with slightly more deep in sedation without complication expressly for the purpose of entering the left lower lobe bronchus which was previously a occluded with inspissated secretions and we was successful with 50 cc in total of lavage in getting a quite a large volume of of mucus back with clinical re-expansion and this was atraumatic without complication Consent for Procedure: Elective - informed consent obtained Indication: atelectasis and pulmonary toilet Procedure: Bedside bronchoscopy with lavage and suction Route: endotracheal tube Sedation/Analgesia: other Monitor: EKG and pulse oximetry Findings: Inspissated inspissated mucus in the left lower lobe bronchus easy visualization and lavage Complications: none
[2021-10-20] MEDS: dexmedeTOMIDidine HCL/NS 400 MCG/100 ML INFUS..BTL 9 MCG IVCONT (18:47)
[2021-10-20] MEDS: dexmedeTOMIDidine HCL/NS 400 MCG/100 ML INFUS..BTL 18 MCG IVCONT (23:35)
[2021-10-21] VITALS (21 sets, daily range): BP systolic 96–151; BP diastolic 37–67; PULSE 9–90; RESP 12–26; TEMP 34.6–36.7; O2SAT 80–98
[2021-10-21] MEDS: Furosemide 40 MG/4 ML VIAL IVPUSH (01:34)
--- NOTE | 2021-10-21 01:52 | PC.NURSE ---
Addendum entered by Xander Ruiz RN 10/21/21 06:08: 8 HOUR OZUNA [id number]...AM CVP= 8-9...BNP PENDING Original Note: CARE ASSUMED 23:15..REMAINS TUBED/VENTED...PCV MODE...RATE 12/IP 15...Ve= 6-7 L/M...SAO2 96% WITH FIO2 35%...PRECIDEX TITRATED PER JUN FOR RESTLES...HS CVP 12-13...FLUID BALANCE SINCE TRANSFER TO ICU 10/15 AM APPROX 11 LITERS (+)...ICU PA AWARE...LASIX 40MG IV X1 GIVEN AND FOR BNP WITH AM LABS
[2021-10-21 05:22] LABS: VBG Base Excess 4.6 mmol/L; VBG HCO3 28 mmol/L (22-26); VBG pCO2 38 mmHg; VBG pH 7.47 (7.32-7.43); VBG pO2 42 mmHg
[2021-10-21] MEDS: Heparin Sodium,Porcine 5,000 UNIT/ML VIAL 5000 UNIT SUBCUT (05:44)
[2021-10-21] MEDS: Pantoprazole Sodium 40 MG/10 ML VIAL IVPUSH (05:45)
[2021-10-21] MEDS: Clindamycin Phosphate/D5W 600 MG/50 ML PIGGYBACK 100 MG IV (05:46)
[2021-10-21] MEDS: Piperacillin Sodium/Tazobactam 4.5 GM in 0.9 % Sodium Chloride 100 ML IV (05:46)
[2021-10-21 05:47] LABS: Venous Blood Gas Refer to POC result
[2021-10-21 05:52] LABS: Basophils Absolute Auto 0.1 X10*3/uL (0.0-0.2); Basophils Percent Auto 0.5 % (0-2); Eosinophils Absolute Auto 0.7 X10*3/uL (0.0-0.4); Eosinophils Percent Auto 4.1 % (0-4); Hematocrit 29.8 % (42.0-52.0); Hemoglobin 9.6 g/dl (14.0-18.0); Imm Gran Pct Auto 1.8 % (0.0-0.4); Lymphocytes Percent Auto 6.1 % (20-40); MANUAL DIFF FLAG SCAN; Mean Corpuscular HGB Conc 32.2 g/dl (31.0-36.0); Mean Corpuscular Hemoglobin 31.5 pg (27.0-33.0); Mean Corpuscular Volume 97.7 fL (80.0-98.0); Mean Platelet Volume 10.3 fL (9.4-12.4); Monocytes Percent Auto 12.3 % (2-11); Neutrophils Absolute Auto 12.4 x10*3/uL (2.0-8.3); Neutrophils Percent Auto 75.2 % (45-73); Platelet Count 257 X10*3/uL (160-400); Red Blood Count 3.05 X10*6/uL (4.60-5.80); Red Cell Distribution Width 14.2 % (11.0-16.0); SCAN SMEAR FLAG 1; White Blood Count 16.5 X10*3/uL (4.8-10.8)
[2021-10-21] MEDS: dexmedeTOMIDidine HCL/NS 400 MCG/100 ML INFUS..BTL 9 MCG IVCONT (05:52)
[2021-10-21 06:06] LABS: Anion Gap 14 (12-20); Blood Urea Nitrogen 22 mg/dL (9-16); Calcium 8.1 mg/dL (8.4-10.2); Carbon Dioxide 27 mmol/L (22-29); Chloride 103 mmol/L (96-108); Creatinine Clr Calc Pharmacy 57.2; Estimated Glomerular Filt Rate > 60; Glucose Random 143 mg/dL (60-115); Magnesium 2.1 mg/dL (1.6-2.6); Phosphorus 3.5 mg/dL (2.7-4.5); Potassium 3.9 mmol/L (3.3-5.1); Sodium 140 mmol/L (135-145)
[2021-10-21 06:11] LABS: B Type Natriuretic Peptide 221 pg/mL (<100)
[2021-10-21 06:13] LABS: SLIDE REVIEW VERIFIED
[2021-10-21] MEDS: Albuterol/Iprat 2.5/0.5MG 3 ML AMPUL.NEB INHALE (07:52)
[2021-10-21] MEDS: Amiodarone HCL 200 MG TABLET 100 MG PO (08:09)
[2021-10-21] MEDS: Latanoprost 0.005 % Ophth Sol 2.5 ML DROPS 1 DROP EYE-LEFT (08:10)
[2021-10-21] MEDS: Chlorhexidine Gluc Oral Rinse 15 ML MOUTHWASH BUCCAL (08:10)
[2021-10-21] MEDS: 0.9 % Sodium Chloride Flush 3 ML SYRINGE IVFLUSH (08:10)
[2021-10-21] MEDS: Erythromycin Base 0.5% Oph Oin 1 GM TUBE 1 CM EYE-LEFT (08:10)
--- NOTE | 2021-10-21 09:50 | MHC.CLN ---
F/U PT REMAINS INTUBATED AND SEDATED PT RECEIVING JEVITY 1.0 AT MAX GOAL RATE 75ML/HR WITH 240ML FREE WATER FLUSHES Q SHIFT. PROVIDES 1908KCALS (2136KCALS WITH SEDATION; 29.7KCALS/KG), 80G PROTEIN (1.1G/KG), 2313ML TOTAL WATER FROM FORMULA AND FLUSHES (32ML/KG) TOLERATING TF WELL WITH LOW RESIDUALS. CONTINUE TO MONITOR TOLERANCE, RESIDUALS, AND LYTES.
[2021-10-21] MEDS: Lactulose 20 GM/30 ML SOLUTION 30 GM PO (10:42)
--- NOTE | 2021-10-21 10:51 | PM.CCPN ---
Subjective Subjective Date of Service: 10/21/21 Interval History: 85-year-old gentleman with underlying dilated cardiomyopathy with EF of 15%, hypertension, TIA secondary to carotid stenosis status post CA, chronic urinary retention, admitted on 10/12/2021 with alteration of mental status likely secondary to septic encephalopathy from a coli UTI with hospital course complicated by acute hypercapnic respiratory failure requiring intubation and ventilatory support on 10/15/2021. No events overnight. Critical Care Time (minutes): 45 Physical Exam Vital Signs: Vital Signs: Last Vital Signs Temp 97.7 F 10/21/21 07:00 Pulse 51 10/21/21 10:00 Resp 22 H 10/21/21 10:00 BP 96/41 L 10/21/21 10:00 Pulse Ox 97 10/21/21 10:00 O2 Del Method 10/21/21 10:00 O2 Flow Rate 2 10/14/21 23:37 FiO2 30 10/21/21 09:00 BMI result Body Mass Index 21.5 Const: General: no acute distress Nutritional Appearance: other (Sedated on the vent) Eyes: Sclerae: sclerae normal EOM: EOMs intact bilaterally Neck: Neck: Yes no lymphadenopathy, Yes trachea midline and Yes supple Resp: Effort & Inspection: normal respiratory effort and no respiratory distress Auscultation: clear to auscultation bilaterally Cardio: Rate: regular rate Rhythm: regular rhythm Heart sounds: no gallops, no murmurs and no rubs GI: Palpation (GI): Soft to palpation and Other GI palpation findings present ( Nontender) Auscultation: normal bowel sounds Extrem: General: No clubbing, No cyanosis and Yes pedal edema (Trace bilateral) Objective Data Labs CBC & Chem 7: 10/21/21 05:13 10/21/21 05:13 Labs: Laboratory Results - last 24 hr 10/21/21 10/21/21 10/21/21 05:13 05:13 05:13 WBC 16.5 H RBC 3.05 L Hgb 9.6 L Hct 29.8 L MCV 97.7 MCH 31.5 MCHC 32.2 RDW 14.2 Plt Count 257 MPV 10.3 Immature Gran % (Auto) 1.8 H Neut % (Auto) 75.2 H Lymph % (Auto) 6.1 L [place] % (Auto) 12.3 H Eos % (Auto) 4.1 H Baso % (Auto) 0.5 Lymph # (Auto) 1.0 L [place] # (Auto) 2.0 H Eos # (Auto) 0.7 H Baso # (Auto) 0.1 Abs Immat Gran (auto) 0.30 H Absolute Neuts (auto) 12.4 H Absolute Nucleated RBC 0.000 Nucleated RBC % (auto) 0.0 Smear Tech's Comments VERIFIED VBG pH VBG pCO2 VBG pO2 VBG HCO3 VBG O2 Saturation VBG Base Excess Sodium 140 Potassium 3.9 Chloride 103 Carbon Dioxide 27 Anion Gap 14 BUN 22 H Creatinine 0.96 Estim Creat Clear Calc 57.2 Estimated GFR > 60 Random Glucose 143 H Calcium 8.1 L Phosphorus 3.5 Magnesium 2.1 B-Natriuretic Peptide 221 H 10/21/21 05:17 WBC RBC Hgb Hct MCV MCH MCHC RDW Plt Count MPV Immature Gran % (Auto) Neut % (Auto) Lymph % (Auto) [place] % (Auto) Eos % (Auto) Baso % (Auto) Lymph # (Auto) [place] # (Auto) Eos # (Auto) Baso # (Auto) Abs Immat Gran (auto) Absolute Neuts (auto) Absolute Nucleated RBC Nucleated RBC % (auto) Smear Tech's Comments VBG pH 7.47 H VBG pCO2 38 VBG pO2 42 VBG HCO3 28 H VBG O2 Saturation 69.0 VBG Base Excess 4.6 Sodium Potassium Chloride Carbon Dioxide Anion Gap BUN Creatinine Estim Creat Clear Calc Estimated GFR Random Glucose Calcium Phosphorus Magnesium B-Natriuretic Peptide Microbiology Microbiology Results: Microbiology 10/19/21 04:50 Sputum - Suctioned Gram Stain - Final 10/19/21 04:50 Sputum - Suctioned Sputum Culture - Preliminary Culture in progress. 10/12/21 13:05 Blood - Venous Blood Culture - Final No growth after 5 days. 10/12/21 12:35 Blood - Venous Blood Culture - Final No growth after 5 days. 10/15/21 12:00 Sputum - Induced Gram Stain - Final 10/15/21 12:00 Sputum - Induced Sputum Culture - Final 10/12/21 14:39 Urine clean catch - Clean Catch Midstream Urine Culture - Final Escherichia coli Progress Note: A&P Assessment and plan (1) Acute and chronic respiratory failure: Status: Acute (2) Atelectasis: Status: Acute (3) Congestive cardiomyopathy: Status: Acute (4) UTI (urinary tract infection): Status: Acute Plan Assessment: 85-year-old gentleman with underlying history systolic heart failure hypertension admitted with septic encephalopathy secondary to a coli UTI with hospital course complicated by acute hypercapnic and hypoxic respiratory failure requiring intubation and ventilatory support. Plan: Neuro: May have underlying ALS/myopathy. Cardiac: Underlying chronic systolic congestive heart failure, continue to maintain euvolemia. Pulmonary: Acute hypoxic and hypercapnic respiratory failure requiring intubation and ventilatory support, continue to titrate off as tolerated. Pulmonary atelectasis/plugging, status post bronchoscopy with mucus plugs clearance on 10/20/2021, empirically covered with Zosyn. Continues to titrate off ventilatory support as tolerated. Renal: No acute issues. Endo: No acute issues. GI: No acute issues. ID: E. coli UTI, resolved. Heme/Onc: No acute issues. Psych: No acute issues. Miscellaneous: No acute issues. Prophylaxis: Heparin Diet: Tube feeds Critical care time spent: 45 minutes Quality Stroke Does the patient have a stroke diagnosis?: No VTE Prior VTE?: No VTE Risk Level:: Medical - moderate - high VTE Device Contraindication: N/A - Device Ordered VTE Drug Contraindication: N/A - Med Ordered
--- NOTE | 2021-10-21 11:43 | PC.NURSE ---
Precedex titrated off, tolerating PSV, patient following commands, O2 Sat maintaining >92% on 35% FiO2. Patient extubated at 1045, answering questions, following commands, AOx3, no complaints. O2 requirements increasing, patient placed on oxymask at 30%, O2 saturation 89-92%. Patient currently unresponsive, gaze drifting upwards, labored breathing, accessory muscle use, question afib, heart rate low 100s with frequent PVCs. MD and respiratory at bedside, patient placed on 100% NBR, O2 saturation in high 70s. Family at bedside, patient now DNR/DNI, awaiting arrival of other family members to make [place].
--- NOTE | 2021-10-21 12:01 | PM.CCN ---
Critical Care Event Note Summary Date of Service: 10/21/21 Code activated: No Narrative: Patient extubated and initially tolerated extubation well, however slowly started to develop respiratory distress and hypoxia, eventually refractory to noninvasive methods of oxygenation. Discussion with the family has been held and decision has been reached to switch goals of care to comfort measures only. Code status changed. Critical Care Time (minutes): 0
[2021-10-21] MEDS: fentaNYL citrate/NS 1,000 MCG/100 ML PLAST..BAG 5 MCG IVCONT (12:36)
[2021-10-21] MEDS: fentaNYL citrate/PF 100 MCG/2 ML VIAL IVPUSH (13:03)
--- NOTE | 2021-10-21 13:26 | PM.DDS ---
Discharge Sum: Prov Provider Primary care physician: RHINA NICK Consults: 10/19/21 12:34 Consult to Pulmonology Routine Consulting Provider: Cliff Obando Reason for consultation: complete atelectasis LLL Has provider been notified: Yes Discharge Sum: Diag Contributing Factors (1) Acute and chronic respiratory failure: (2) Atelectasis: (3) Congestive cardiomyopathy: (4) UTI (urinary tract infection): (5) Aspiration pneumonitis: (6) Myopathy: (7) HTN (hypertension): Discharge Sum: Summary Date and Time Date of admission: 10/12/21 17:13 Summary Details: 85-year-old gentleman with underlying dilated cardiomyopathy with EF of 55%, hypertension, TIA secondary to carotid stenosis status post CA, chronic urinary retention, admitted on 10/12/2021 with alteration of mental status likely secondary to septic encephalopathy from E Coli UTI with hospital course complicated by acute hypercapnic respiratory failure requiring intubation and ventilatory support on 10/15/2021 with a component aspiration mucus plugging require in bronchoscopic clear on 10/20/2021. Patient extubated on 10/21/2021 and initially tolerated extubation well, however slowly started to develop respiratory distress and hypoxia, eventually refractory to noninvasive methods of oxygenation. Discussion with the family has been held and decision has been reached to switch goals of care to comfort measures only. Code status changed to comfort measures and patient passed peacefully with family at bedside at 13:15. Additional Data Confirmation of as documented by pronouncing clinician: no pulse, no respirations, no heart sounds and pupils fixed and dilated Family: at bedside Attending physician: Sobia Farfan MD
--- NOTE | 2021-11-06 09:46 | P.CDIR_ITS ---
Documented by User: Val Maldonado RN 11/06/21 09:54 Retrospective Query PHYSICIAN'S DOCUMENTATION REQUEST Date of Query: 11/06/21 0947 Patient Name: Lionel Knight Admit Date: 10/12/21 Dear Doctor, A review of the medical record indicates additional documentation may be needed. Please review below and update the documentation accordingly. Risk Factors/Clinical Indicators/Treatments Per MD progress note on 10/21/21: admitted with septic encephalopathy secondary to a coli UTI On 10/21/21: WBC 16.5 T 97.7, 51, 22, 96/41 Per H&P on admission: UTI, Toxic Metabolic Encephalopathy on admit 10/12/21: WBC 10.5 T 97.7, 80, 15, 135/66 Recognized standard criteria for this condition and other infectious definitions includes: Sepsis Systemic manifestations of infection, with 2 or more SIRS criteria which include: * Fever > 100.4?F or hypothermia < 96.8?F * Leukocytosis ? WBC > 12,000 or leukopenia, WBC < 4,000, or > 10% bands * Tachycardia- > 90 beats/minute * Tachypnea- RR > 20 breaths/minute or PaCO2 < 32mmHg Source: [employer] Manual 2013 Documentation should include the known or suspected organism, and the underlying infection, such as UTI or pneumonia Based on the above information and the recognized standard for sepsis, could you please clarify in the Progress Notes if this diagnoses is still accurate and reflective of the patient's condition to ensure quality of the medical record. * Sepsis is/was present and is a clinical diagnosis based on (please include this additional support in the medical record) * After study, Sepsis has been ruled out * Other (please specify) * Unable to determine Use of terms such as suspected, likely, concern for, or probable (associated with a specific diagnosis that is being evaluated, monitored, or treated as if it exists) are acceptable and can be coded in the inpatient setting, when documented at the time of discharge. Thank you, Val Maldonado RN Extension: [phone] Please use your independent medical judgment in providing your response. THIS QUERY IS PART OF THE PERMANENT MEDICAL RECORD Documented by User: Cliff Obando MD 11/12/21 10:39 Retrospective Query Provider Response: Other ( sepsis was present based on results of the urinary culture)
== END 2021-10-21 13:37 | disposition expired | DRG 870 ==
LOC: HO.ED 17:22 → HO.EDOVER 17:37 → HO.IMC 20:44 → HO.ICU 10-15 04:39
PROVIDERS: Internal Medicine; Physician Assistant; Admitting Provider Internal Medicine; Emergency Provider Emergency Medicine Emergency Medical Services; PCP Emergency Medicine; Visit Provider Internal Medicine Cardiovascular Disease
DX: A41.9 Sepsis, unspecified organism (principal); J69.0 Pneumonitis due to inhalation of food and vomit; G92.8 Other toxic encephalopathy; R40.20 Unspecified coma; J96.21 Acute and chronic respiratory failure with hypoxia; J96.22 Acute and chronic respiratory failure with hypercapnia; N39.0 Urinary tract infection, site not specified; E87.0 Hyperosmolality and hypernatremia; N17.9 Acute kidney failure, unspecified; I13.0 Hypertensive heart and chronic kidney disease with heart failure and stage 1 through stage 4 chronic kidney disease, or unspecified chronic kidney disease; I50.22 Chronic systolic (congestive) heart failure; E87.2 Acidosis; I42.0 Dilated cardiomyopathy; J21.9 Acute bronchiolitis, unspecified; I45.2 Bifascicular block; J91.8 Pleural effusion in other conditions classified elsewhere; J98.11 Atelectasis; Z51.5 Encounter for palliative care; R33.9 Retention of urine, unspecified; N18.2 Chronic kidney disease, stage 2 (mild); E86.0 Dehydration; E83.39 Other disorders of phosphorus metabolism; I45.10 Unspecified right bundle-branch block; R94.31 Abnormal electrocardiogram [ECG] [EKG]; Z20.822 Contact with and (suspected) exposure to COVID-19; I95.2 Hypotension due to drugs; T41.295A Adverse effect of other general anesthetics, initial encounter; I44.0 Atrioventricular block, first degree; G72.9 Myopathy, unspecified; B96.20 Unspecified Escherichia coli [E. coli] as the cause of diseases classified elsewhere; R29.6 Repeated falls; Z86.73 Personal history of transient ischemic attack (TIA), and cerebral infarction without residual deficits; Z87.440 Personal history of urinary (tract) infections; Z91.81 History of falling; Z87.891 Personal history of nicotine dependence; Z79.51 Long term (current) use of inhaled steroids; Z79.899 Other long term (current) drug therapy
CPT/HCPCS: 36415; 36600; 70450; 71045; 71250; 80048; 80053; 81001; 82803; 82947; 83605; 83690; 83735; 83880; 84100; 84484; 85025; 85610; 87040; 87070; 87086; 87088; 87186; 87205; 87502; 87635; 93005; 94002; 94003; 94640; 94799; 96365; 99285; C1758; J0696; J1940; J2060; J2185; J2370; J2543; J3010; J3370